=== PATIENT | male | born 1955 | race African-American/Black ===

== ENCOUNTER 2016-03-10 16:06 | Emergency (ER) | payer MEDICARE ==
[2015-11-11 09:59] VITALS: BMI 26.6
[~2016-03-10 16:06] MED LIST: ACCUPRIL20 MG PO; ASPIRIN325 MG PO; COREG12.5 MG PO; ELAVIL25 MG PO; GLUCOPHAGE1000 MG PO; GLUCOTROL 5 MG T5 MG PO; NEURONTIN600 MG PO; NITROQUICK0.4 MG SL; OMEPRAZOLE40 MG PO; PEPCID40 MG PO; PLAVIX75 MG PO; ULTRAM50 MG PO
== END 2016-03-10 21:45 | disposition home or self-care (01) ==
LOC: D.ER 16:06
DX: J02.9 Acute pharyngitis, unspecified (principal); E11.9 Type 2 diabetes mellitus without complications; I10 Essential (primary) hypertension

== ENCOUNTER → 2016-09-09 07:07 | Outpatient (CLI) | payer MEDICARE ==
[2015-11-11 09:59] VITALS: BMI 26.6
[2016-09-09 07:37] LABS: BASOPHILS 0.2 % (0-2); EOSINOPHILS 1.6 % (0-7); HEMOGLOBIN 15.4 g/dL (13.5-17.5); IMMATURE GRANULOCYTES 0.2 % (0-5); LYMPHOCYTES 35.5 % (15-50); MCH 29.4 pg (26.0-34.0); MCHC 34.2 g/dL (31.0-37.0); MCV 85.9 fL (80.0-100.0); MONOCYTES 6.5 % (2-11); PLATELET COUNT 194 10x3/uL (130-400); RBC 5.24 10x6/uL (4.20-6.10); RDW 14.6 % (11.5-14.5); WBC 5.5 10x3/uL (4.8-10.8)
[2016-09-09 07:50] LABS: HEMOGLOBIN A1C 6.8 % (4.8-6.0)
[2016-09-09 08:22] LABS: ALBUMIN 3.8 g/dL (3.4-5.0); ANION GAP 13.1 mmol/L (8-16); BILIRUBIN - TOTAL 0.4 mg/dL (0.2-1.3); CALCIUM 8.8 mg/dL (8.5-10.1); CARBON DIOXIDE 27.1 mmol/L (21.0-32.0); CHOL - HDL RATIO 3.3 ratio (2.3-4.9); CREATININE - SERUM 1.2 mg/dL (0.6-1.3); LDL-HDL RATIO 1.8 ratio (1.5-3.5); POTASSIUM - SERUM 4.2 mmol/L (3.5-5.1); PROTEIN - SERUM 6.6 g/dL (6.4-8.2); THYROID STIMULATING HORMONE 0.99 uIU/mL (0.36-3.74)
[2016-09-09 08:23] LABS: DIGOXIN 0.02 ng/mL (0.90-2.00); SCREENING PSA (YEARLY) 0.45 ng/mL (0.00-4.00)
== END ==
LOC: D.LAB 07:07 → D.LABREF 07:07
PROVIDERS: Family Medicine
DX: Z00.00 Encounter for general adult medical examination without abnormal findings (principal); Z12.5 Encounter for screening for malignant neoplasm of prostate; E11.9 Type 2 diabetes mellitus without complications; E78.4 Other hyperlipidemia; I25.10 Atherosclerotic heart disease of native coronary artery without angina pectoris

== ENCOUNTER 2017-02-03 07:22 | Outpatient (CLI) | payer MEDICARE ==
[~2017-02-03] VITALS: Ht 175.3 cm; Wt 86.4 kg
--- NOTE | ~2017-02-03 | HEMODYNAMI ---
PATIENT:MAR SAVAGE MEDICAL RECORD: [id number] : 57 LOCATION:D.CAT ADMISSION DATE: 02/03/17 Generatedon:02/03/201710:26 Patient name: MAR SAVAGE Patient #: [id number] SSN: : 1955 Date of study: 02/03/2017 Page: Of Hemodynamic Procedure Report Patient Data Patient Demographics Procedure consent was obtained First Name: MAR Gender: Male Last Name: JANETTE : 1955 [facility] Initial: [place] Age: 61 year(s) Patient #: [id number] Race: Black Additional ID: [id number] Contact details [address]: [address] [place] [address] State: [place] City: [place] Zip code: [address] Past Medical History Allergies Allergen Reaction Date Comments Reported Other allergy Skin ->rash 02/03/2017 Plavix Admission Admission Data Admission Date: 02/03/2017 Admission Time: 7:22 Procedure Procedure Types Cath Procedure Diagnostic Procedure LHC LHC w/Coronaries PCI Procedure Coronary Stent Coronary Stent Initial Miscellaneous Procedures Moderate Sedation up to 15 minutes Procedure Description Procedure Date Procedure Date: 02/03/2017 Procedure Start Time: 10:12 Procedure End Time: 10:24 Procedure Staff Name Function Angelito Candelario MD Performing Physician Cookie Rogers RT Monitor Keon Jin RN Nurse Evelin Aguilar RT Scrub Procedure Data Cath Procedure Fluoroscopy Diagnostic fluoroscopy Total fluoroscopy Time: 2.6 time: 2.6 min min Diagnostic fluoroscopy Total fluoroscopy dose: 471 dose: 471 mGy mGy Contrast Material Contrast Material Type Amount (ml) Isovue 300 69 Entry Location Entry Primary Successful Side Size Upsize Upsize Entry Closure Faust ccessful Closure Location (Fr) 1 (Fr) 2 (Fr) Remarks Device Remarks Radial Right 6 Fr Mechanical artery Short Compression Estimated blood loss: 10 ml Diagnostic catheters Device Type Used For End Catheter Placement DIAGNOSTIC [place] 110cm 5 LV Angiography Fr catheter ([id number]) DIAGNOSTIC [place] 110cm 5 Left Coronary Fr catheter ([id number]) Angiography DIAGNOSTIC [place] 110cm 5 Right Coronary Fr catheter ([id number]) Angiography Procedure Complications No complications Procedure Medications Medication Administration Route Dosage 0.9% NaCl I.V. 100 ml/hr Oxygen NC 2 l/min Heparin Flush Bag added to field 2 bags (1000units/500ml NS) Lidocaine 2% added to field 20 Radial Cocktail added to field 1 syringe (Verapomil 2mg/Nitro 400mcg/Heparin 1500units) Benadryl I.V. 50 mg Versed I.V. 1 mg Fentanyl I.V. 50 mcg Radial Cocktail I.A. 1 syringe (Verapomil 2mg/Nitro 400mcg/Heparin 1500units) Heparin Bolus I.V. 4000 units Integrilin (Bolus I.V. 7.9 ml 2mg/ml) Integrilin (Bolus wasted 2.1 ml 2mg/ml) Effient P.O. 60 mg Hemodynamics Rest Heart Rate: 70 (bpm) Snapshots Pre Cath Intra NCS Post Cath Vital Signs Time Heart Resp SPO2 etCO2 NIBP (mmHg) Rhythm Pain Sedation Rate (ipm) (%) (mmHg) Status Level (bpm) 9:59:38 66 13 93 35 159/82(122) NSR 0 (11) 10(A) , No pain 10:04:21 63 14 96 37 144/91(117) NSR 0 (11) 10(A) , No pain 10:09:04 62 13 96 36.7 131/81(108) NSR 0 (11) 10(A) , No pain 10:13:42 65 15 99 36.7 137/79(117) NSR 0 (11) 10(A) , No pain 10:18:23 71 14 94 35.2 122/73(100) NSR 0 (11) 10(A) , No pain 10:22:59 68 15 96 35.9 129/72(107) NSR 0 (11) 10(A) , No pain Medications Time Medication Route Dose Verified Delivered Reason Note s Effectiveness by by 10:01:02 0.9% NaCl I.V. 100 Keon Keon Per physician ml/hr Davin Jin RN RN 10:01:18 Oxygen NC 2 l/min Keon Keon Per physician Davin Jin RN RN 10:01:32 Heparin Flush added 2 bags Keon Keon used for Bag to Davin Jin procedure (1000units/500ml field RN RN NS) 10:01:51 Lidocaine 2% added 20ml Keon Keon for local to vial Lorasuncion Jin anesthetic RN RN 10:02:05 Radial Cocktail added 1 Keon Keon used for (Verapomil to syringe Lorasuncion Jin procedure 2mg/Nitro field RN RN 400mcg/Heparin 1500units) 10:02:17 Benadryl I.V. 50 mg Keon Keon Per physician Davin Jin RN RN 10:07:53 Versed I.V. 1 mg Keon Keon for sedation Davin Jin RN RN 10:08:06 Fentanyl I.V. 50 mcg Keon Keon for sedation Davin Jin RN RN 10:13:49 Radial Cocktail I.A. 1 Keon Angelito for (Verapomil syringe Davin Candelario MD vasodilation 2mg/Nitro RN 400mcg/Heparin 1500units) 10:19:23 Heparin Bolus I.V. 4000 Keon Keon for units Davin Jin anticoagulation RN RN 10:19:42 Integrilin I.V. 7.9 ml Keon Keon for (Bolus 2mg/ml) Davin Jin antiplatelet RN RN therapy 10:19:58 Integrilin wasted 2.1ml Keon Keon to sharp's (Bolus 2mg/ml) Davin Jin RN RN 10:24:47 Effient P.O. 60 mg Keon Keon for Davin Jin antiplatelet RN RN therapy Procedure Log Time Note 9:37:45 Cookie Counts RT(R) sent for patient. Start room use. 9:37:46 Time tracking: Regular hours 9:37:50 Plan of Care:Hemodynamics will remain stable., Cardiac rhythm will remain stable., Comfort level will be maintained., Respiratory function will remain adequate., Patient/ family verbilizes understanding of procedure., Procedure tolerated without complication., Recovers from procedure without complications.. 9:47:02 Patient received from Pre/Post Procedure Room to CCL 1 Alert and oriented. Tansferred to table in Supine position. 9:47:04 Warm blankets applied, and oleg hugger turned on for patient comfort. 9:47:04 Correct patient and procedure confirmed by team. 9:47:06 Signed procedure consent form obtained from patient. 9:47:08 ECG and BP/O2 sat monitors applied to patient. 9:58:10 Vital chart was started 9:58:13 Rhythm: sinus rhythm 9:58:55 Full Disclosure recording started 9:59:37 H&P Date Dictated: 01/14/2017 Within 30 days and on chart., H&P Addendum completed by physician on day of procedure. (MUST COMPLETE FOR ALL OUTPATIENTS). 9:59:41 Baseline sample Acquired. 9:59:43 Pre-procedure instructions explained to patient. 9:59:43 Pre-op teaching completed and patient verbalized understanding. 9:59:46 Family in patients room. 9:59:47 Patient NPO since Midnight. 10:00:19 Patient allergic to Other allergyPlavix 10:00:22 Is the patient allergic to Iodine/contrast media? No. 10:00:25 Is patient on blood thinner?No 10:00:27 Patient diabetic? Yes. 10:00:39 If diabetic: On Metformin? Yes 10:00:42 If on Metformin: Last Dose? 02/01/2017 10:00:45 Previous problem with sedation/anesthesia? No ? 10:00:46 Snore? Yes 10:00:47 Sleep apnea? No 10:00:48 Deviated septum? No 10:00:50 Opens mouth fully? Yes 10:00:50 Sticks out tongue? Yes 10:00:52 Airway obstruction? No ? 10:00:55 Dentures? No ? 10:01:02 0.9% NaCl 100 ml/hr I.V. was administered by Keon Jin RN; Per physician; 10:01:07 Pre procedure: right dorsailis pedis pulse 2+ Normal; easily identifiable; not easily obliterated 10:01:08 Modified Christophe's test Ulnar < 7 seconds 10:01:10 Patient pain scale 0/10 ?. 10:01:16 IV patent on arrival in left hand with 0.9% NaCl at [facility]. 10:01:18 Oxygen 2 l/min NC was administered by Keon Jin RN; Per physician; 10:01:32 Heparin Flush Bag (1000units/500ml NS) 2 bags added to field was administered by Keon Jin RN; used for procedure; 10:01:40 Lab results completed and on chart. 10:01:43 Right Radial & Right Groin area was prepped with chlora-prep and draped in sterile fashion 10:01:44 Alarms reviewed by R. N. 10:01:45 Sharps counted by scrub and verified by R.N. 10:01:48 Use device set Radial Dx 10:01:49 ACIST Syringe (60638) opened to sterile field. 10:01:49 Medline Cath Pack ([id number]) opened to sterile field. 10:01:50 Bag Decanter (2002S) opened to sterile field. 10:01:50 SHEATH 6FR Slender ([id number]) opened to sterile field. 10:01:51 Lidocaine 2% 20ml vial added to field was administered by Keon Jin RN; for local anesthetic; 10:01:51 DIAGNOSTIC WIRE .035 260cm J wire (357650) opened to sterile field. 10:01:51 ACIST Hand Control (23118) opened to sterile field. 10:01:52 ACIST Manifold (23040) opened to sterile field. 10:01:52 Tegaderm 4 x 4 (1626W) opened to sterile field. 10:01:53 MBrace Wrist Support ([id number]) opened to sterile field. 10:02:05 Radial Cocktail (Verapomil 2mg/Nitro 400mcg/Heparin 1500units) 1 syringe added to field was administered by Keon Jin RN; used for procedure; 10:02:17 Benadryl 50 mg I.V. was administered by Keon Jin RN; Per physician; 10:03:10 Physician paged 10:04:09 Zero performed for pressure channel P1 10:07:04 Final Timeout: patient, procedure, and site verified with staff and physician. All members of the team are in agreement. 10:07:08 Right Radial site verified by team. 10:07:10 Physical assessment completed. ASA score P 2 - A patient with mild systemic disease as per Angelito Candelario MD. 10:07:14 Sedation plan: IV Moderate Sedation Medication:Versed, Fentanyl 10:07:53 Versed 1 mg I.V. was administered by Keon Jin RN; for sedation; 10:08:06 Fentanyl 50 mcg I.V. was administered by Keon Jin RN; for sedation; 10:12:33 Procedure started. 10:12:43 Local anesthetic to right radial artery with Lidocaine 2% by Angelito Candelario MD.INITIAL ACCESS ONLY 10:13:03 A 6 Fr Short sheath was inserted into the Right Radial artery 10:13:41 A DIAGNOSTIC [place] 110cm 5 Fr catheter ([id number]) was advanced over the wire and used for LV Angiography. 10:13:49 Radial Cocktail (Verapomil 2mg/Nitro 400mcg/Heparin 1500units) 1 syringe I.A. was administered by Angelito Candelario MD; for vasodilation; 10:14:17 LV gram done using CARRANZA 10:14:21 Injector settings: Ml/sec: 5, Volume: 15, 10:14:31 EF : 50 % 10:14:44 A DIAGNOSTIC [place] 110cm 5 Fr catheter ([id number]) was advanced over the wire and used for Left Coronary Angiography. 10:14:53 Use device set [facility] PCI 10:15:30 INFLATOR Merit BasixCompak ([id number]) opened to sterile field. 10:15:37 A DIAGNOSTIC [place] 110cm 5 Fr catheter (546645) was advanced over the wire and used for Right Coronary Angiography. 10:16:09 Catheter removed. 10:16:25 GUIDE 6FR AR 2.0 catheter ([id number]) opened to sterile field. 10:16:37 CHOICE PT Extra Support 182cm wire ([id number]) opened to sterile field. 10:17:28 6 Fr AR 2.0 guide catheter was inserted over the wire 10:18:08 CHOICE PT ES wire advanced. 10:19:23 Heparin Bolus 4000 units I.V. was administered by Keon Jin RN; for anticoagulation; 10:19:42 Integrilin (Bolus 2mg/ml) 7.9 ml I.V. was administered by Keon Jin RN; for antiplatelet therapy; 10:19:58 Integrilin (Bolus 2mg/ml) 2.1ml wasted was administered by Keon Jin RN; to sharp's; 10:20:10 Inflation Number: 1 A RADHA RX 3.5 x 34 stent ([id number]) was prepped and advanced across the Mid RCA. The stent was deployed at 15 ROSE for 0:10 (min:sec). 10:20:40 Stent catheter was removed intact over wire. 10:20:41 Wire removed. 10:20:42 Guide catheter removed. 10:20:52 Sheath removed intact; hemostasis achieved with Mechanical Compression to the Right Radial artery. 10:20:54 Procedure ended.(Physican Out) 10:21:07 Fluoroscopy time 02.60 minutes. 10:21:12 Fluoroscopy dose: 471 mGy 10:21:12 Flurop Dose total: 471 10:21:15 Contrast amount:Isovue 300 69ml. 10:21:16 Sharps counted by scrub and verified by R.N. 10:21:18 Insertion/operative site no bleeding no hematoma. 10:21:28 Post right radial artery:stable, clean and dry 10:21:30 Post Procedure Pulses reassessed and unchanged 10:21:33 Post-procedure physical assessment completed. ASA score P 2 - A patient with mild systemic disease as per Angelito Candelario MD. 10:21:37 Post procedure rhythm: unchanged. 10:21:40 Estimated blood loss: 10 ml 10:21:42 Post procedure instruction explained to patient.Patient verbalizes understanding. 10:21:44 Patient needs reinforcement of post procedure teaching. 10:21:52 Procedure type changed to Cath procedure, Diagnostic procedure, LHC, LHC w/Coronaries, PCI procedure, Coronary Stent, Coronary Stent Initial, Miscellaneous Procedures, Moderate Sedation up to 15 minutes 10:22:00 Procedure Complication : No complications 10:22:02 See physician's report for complete and final results. 10:22:45 TR BAND Standard ([id number]) opened to sterile field. 10:23:36 Procedure and supply charges have been captured, reviewed, submitted and are correct. 10:23:45 Vital chart was stopped 10:23:47 Report given to Pre/Post Procedure Room. 10:23:50 Patient transfered to Pre/Post Procedure Room with Stretcher. 10:23:57 TR band inflated with 0cc of air. 10:23:59 TR band inflated with 13cc of air. 10:24:12 Procedure ended. 10:24:12 Full Disclosure recording stopped 10:24:16 End room use (Document Last) 10:24:47 Effient 60 mg P.O. was administered by Keon Jin RN; for antiplatelet therapy; Intervention Summary Intervention Notes Time ActionType Lesion and Equipment Used Action# Pressure Duration Attributes 10:20:10 Place stent Mid RCA RADHA RX 3.5 x 1 15 00:10 34 stent ([id number]) Device Usage Item Name Manufacture Quantity Catalog Number Hospital Part Current M inimal Lot# / Charge Number Stock Stock Serial# Code ACIST Syringe Acist 1 11423 721226 408763 065250 2 0 (28926) Medical Systems Inc Medline Cath Cardinal 1 [id number] 994952 39332 925013 5 Pack Health ([id number]) Bag Decanter Microtek 1 2001S 433236 51074 195142 5 () Medical Inc. SHEATH 6FR Terumo 1 [id number] 347649 313892 352427 4 0 Slender ([id number]) DIAGNOSTIC St Tooñ 1 757279 412023 871148 595171 3 0 WIRE .035 260cm J wire (139400) ACIST Hand Acist 1 65797 005290 709338 421989 5 Control Medical (31763) Systems Inc ACIST Manifold Acist 1 41555 131073 709435 109048 5 (64131) Medical Systems Inc Tegaderm 4 x 4 3M 1 1626W 068253 644331 332972 5 (1626W) MBrace Wrist Advanced 1 140-0250-00 692497 33274 101381 5 Support Vascular ([id number]) Dynamics DIAGNOSTIC Terumo 1 40-4203 854545 908242 898280 5 [place] 110cm 5 Fr catheter (082192) INFLATOR Merit Merit 1 OK6388 160076 941386 499600 1 5 autoGraph (LZ4796) GUIDE 6FR AR Medtronic 1 [id number] 231104 21105 126560 1 2.0 catheter (AO0DZ41) CHOICE PT [place] 1 [id number] 609781 500642 923085 5 Extra Support Scientific 182cm wire ([id number]) RADHA RX 3.5 x Medtronic 1 [id number] 851738 8446284 486137 5 [id number] 34 stent ([id number]) TR BAND Terumo 1 [id number] 444168 170804 668162 4 0 Standard ([id number]) Signature Audit [place] Stage Time Signature Unsigned Intra-Procedure 02/03/2017 Cookie 10:26:54 AM Counts RT(R) Signatures Monitor : Cookie Signature : Counts RT Date : Time : [facility] [address] [place] [address]
[2017-02-03] MEDS ORDERED: LIPITOR20 MG PO (07:38)
[2017-02-03 07:58] VITALS: BP 154/80; Ht 175.3 cm; Wt 86.4 kg
[2017-02-03 08:01] LABS: BASOPHILS 0.2 % (0-2); EOSINOPHILS 1.7 % (0-7); HEMATOCRIT 44.6 % (42.0-54.0); HEMOGLOBIN 15.5 g/dL (13.5-17.5); IMMATURE GRANULOCYTES 0.2 % (0-5); LYMPHOCYTES 30.1 % (15-50); MCH 28.8 pg (26.0-34.0); MCHC 34.8 g/dL (31.0-37.0); MCV 82.7 fL (80.0-100.0); MEAN PLATELET VOLUME 10.1 fL (7.4-10.4); MONOCYTES 7.5 % (2-11); NEUTROPHILS 60.3 % (40-80); PLATELET COUNT 191 10x3/uL (130-400); RBC 5.39 10x6/uL (4.20-6.10); RDW 14.5 % (11.5-14.5); WBC 4.8 10x3/uL (4.8-10.8)
[2017-02-03 08:10] LABS: CALC OSMOLALITY 286 mosm/kg (275-300); CALCIUM 8.9 mg/dL (8.5-10.1); CARBON DIOXIDE 26.6 mmol/L (21.0-32.0); CHLORIDE - SERUM 107 mmol/L (98-107); GLUCOSE 184 mg/dL (74-106); POTASSIUM - SERUM 3.8 mmol/L (3.5-5.1); SODIUM 141 mmol/L (136-145); UREA NITROGEN 14 mg/dL (7-18); eGFR NON AFRICAN AMERICAN 81 mL/min (90-120)
[2017-02-03] MEDS ORDERED: EFFIENT10 MG PO (10:40)
--- NOTE | 2017-02-03 10:50 | NUR ---
ROOM AIR, NO RESP DISTRESS. RIGHT WRIST TR BAND CDI, NO BLEEDING OR HEMATOMA NOTED. NO C/O PAIN OR NAUSEA. VSS. FAMILY AT BEDSIDE, CALL LIGHT WITHIN REACH.
--- NOTE | 2017-02-03 11:20 | NUR ---
RIGHT WRIST TR BAND CDI, NO BLEEDING OR HEMATOMA NOTED. ROOM AIR, NO RESP DISTRESS. VSS. NO C/O PAIN OR NAUSEA. VSS. WILL CONTINUE TO MONITOR CLOSELY.
--- NOTE | 2017-02-03 11:35 | NUR ---
SITTING UP IN BED SIPPING ON DRINK AND EATING SANDWICH WITH NO C/O NAUSEA. RIGHT WRIST TR BAND CDI, NO BLEEDING OR HEMATOMA NOTED. NO C/O PAIN. ROOM AIR, NO RESP DISTRESS. VSS. CALL [facility] WITHIN REACH.
--- NOTE | 2017-02-03 12:35 | NUR ---
RESTING QUIETLY WITH EYES CLOSED. NO C/O AT THIS TIME. RIGHT WRIST TR BAND CDI, NO BLEEDING OR HEMATOMA NOTED. VSS. WILL CONTINUE TO MONITOR.
--- NOTE | 2017-02-03 13:35 | NUR ---
SITTING UP EATING SANDWICH. NO C/O AT THIS TIME. 3CC OF AIR REMOVED FROM TR BAND, NO BLEEDING NOTED. VSS. CALL LIGHT WITHIN REACH.
--- NOTE | 2017-02-03 13:45 | NUR ---
2CC OF AIR REMOVED FROM TR BAND, NO BLEEDING NOTED.
--- NOTE | 2017-02-03 13:55 | NUR ---
C/O SOB AND PAIN ON LEFT SIDE. LUNG AND HEART SOUNDS AUSCULTATED. DR. RAMOS NOTIFIED. GI COCKTAIL ORDERED.
--- NOTE | 2017-02-03 14:00 | NUR ---
3CC OF AIR REMOVED FROM TR BAND, NO BLEEDING NOTED.
--- NOTE | 2017-02-03 14:17 | NUR ---
LEFT PIV D/C'D WITH CATHETER INTACT, BAND AID TO SITE. UP TO BEDSIDE TO GET DRESSED.
--- NOTE | 2017-02-03 14:25 | NUR ---
REMAINING AIR REMOVED FROM TR BAND, DRESSING PLACED TO SITE. DISCHARGE INSTRUCTIONS GIVEN, VERBALIZED UNDERSTANDING.
--- NOTE | 2017-02-03 14:35 | NUR ---
TAKEN OUT VIA WHEELCHAIR BY [employer] MANAGER. LEFT FACILITY WITH FAMILY AND ALL PERSONAL BELONGINGS.
--- NOTE | 2017-02-10 15:46 | OP ---
PATIENT NAME: MAR SAVAGE MEDICAL RECORD: [id number] :57 LOCATION:D.CAT ADMISSION DATE: SURGEON: SUDHA RAMOS MD DATE OF OPERATION: 02/03/2017 PROCEDURES: 1. PTCA stent to RCA. 2. Left heart catheterization. 3. Selective coronary angiography. 4. Left ventriculogram. INDICATION: Angina and coronary artery disease. PROCEDURE IN DETAIL: After informed consent was obtained and after a detailed explanation of risks, benefits as well as alternative therapies, the patient elected to proceed with angiogram and angioplasty. The right radial area was prepped and draped in normal sterile fashion. Right radial artery was cannulated via modified Seldinger technique with placement of 6-[place] sheath. All catheters exchanged through this sheath. FINDINGS: The left ventriculogram was performed in standard 30-degree CARRANZA view, reveals preserved cardiac wall motion throughout all segments. Overall ejection fraction 50%. SELECTIVE CORONARY ANGIOGRAPHY: 1. Left main showed no significant angiographic disease. 2. Left anterior descending has previously placed stent. This is widely patent. However, proximal to this, there is 70-75% stenosis. 3. The left circumflex has a new 70-75% stenosis in the mid vessel. 4. The right coronary has previously placed stent. There is 70+ percent in-stent restenosis in the proximal portion of the stent. PTCA STENT OF THE RIGHT CORONARY ARTERY: The stent used was a 3.5 x 30 mm Sinclair. Result was 0% residual stenosis. OVERALL IMPRESSION: Successful percutaneous transluminal coronary angioplasty stent of the right coronary artery going from greater than 70% initial stenosis to 0% residual stenosis. PLAN: PTCA stent of the LAD and circumflex in the near future. TRANSINT:[id number] Voice Confirmation ID: [id number] DOCUMENT ID: [id number] SUDHA RAMOS MD at 1546 CC: [id number] DICTATION DATE: 02/03/17 1025 ROTARY ENGRAVER: 02/03/17 1139 DEP CLI 02/03/17 [place] [id number]
== END 2017-02-03 14:35 | disposition home or self-care (01) ==
LOC: D.CATH 07:22
PROVIDERS: Internal Medicine Interventional Cardiology
DX: I25.119 Atherosclerotic heart disease of native coronary artery with unspecified angina pectoris (principal); I10 Essential (primary) hypertension; E78.5 Hyperlipidemia, unspecified; F17.200 Nicotine dependence, unspecified, uncomplicated; Z01.812 Encounter for preprocedural laboratory examination
CPT/HCPCS: 93458; C9600

== ENCOUNTER 2017-02-12 08:04 | Outpatient (CLI) | payer MEDICARE ==
[~2017-02-12] VITALS: Ht 177.8 cm; Wt 85.9 kg
--- NOTE | ~2017-02-12 | HP ---
PATIENT: MAR EDWARD MEDICAL RECORD: [id number] ACCOUNT: [id number] LOCATION:SADNRA : 57 ADMISSION DATE: 02/12/17 HISTORY AND PHYSICAL EXAMINATION ADMITTING DIAGNOSES: 1. Angina. 2. Coronary artery disease. 3. Recent percutaneous transluminal coronary angioplasty and stent of the right coronary artery with concomitant disease in LAD and circumflex. 4. Diabetes, non-insulin dependent. 5. Hypertension. 6. Hyperlipidemia. HISTORY OF PRESENT ILLNESS: Mr. Edward presents with anginal symptomatology and found to have 3-vessel coronary artery disease, underwent successful PTCA stent of the RCA, now brought back for PTCA stent of the left circumflex and LAD. REVIEW OF SYSTEMS: The patient reports easy bruising but reports no swollen glands. The patient reports no fever, no night sweats, no significant weight gain, no significant weight loss. No significant exercise tolerance. The patient reports no dry eyes, no irritation, no vision change. Patient reports no difficulty hearing and no ear pain. Patient reports no frequent nose bleeds or nose and sinus problems. Patient reports on arm pain on exertion. No shortness of breath while lying down. No history of heart murmur. Patient reports no cough, no wheezing or coughing up blood. Patient reports no abdominal pain, no vomiting. Normal appetite. No diarrhea and not vomiting blood. No nausea and no constipation. Patient reports no incontinence. No difficulty urinating. No hematuria. No increased frequency. Patient reports no muscle aches. No weakness, no arthralgias, no back pain. No swelling of the extremities. Patient reports no abnormal mole, no jaundice, no rashes. Reports no loss of consciousness. No weakness and no numbness. No seizures, dizziness, or headaches. The patient reports no depression, no sleep disturbance, feeling safe in a relationship and no alcohol abuse. Patient reports on fatigue. Reports no runny nose or sinus pressure. No itching, no hives, and no frequent sneezing. PHYSICAL EXAMINATION: GENERAL APPEARANCE: Well-nourished, well-developed, appears stated age. Level of distress, comfortable. PSYCHIATRIC: Mental status, alert, normal affect. Orientation, oriented to time, place and person. EYES: Lids and conjunctiva, noninjected. No discharge, no pallor. ENT: Lips, teeth, gums, normal dentition. Oropharynx, no cyanosis, no pallor. NECK: Carotid arteries, bilateral normal upstroke, no bruits, no thrills. JUGULAR VEINS: No jugular venous pressure or distention. CERVICAL LYMPH NODES: Nontender, nonenlarged. THYROID: Not enlarged. Nontender. No nodules. LUNGS: Respiratory effort, unlabored. CHEST: Normal curvature. No thoracic deformity. No chest wall tenderness. Percussion, resonant. Auscultation, clear. No wheezes, no rales, no rhonchi. CARDIOVASCULAR: Precordial exam, nondisplaced. No heaves or pericardial thrills. Rate and rhythm, regular. Heart sounds, normal S1, normal S2. No S3, no gallop, no rub. Systolic murmur, not heard. Diastolic murmur, not heard. EXTREMITIES: No cyanosis, no edema. Peripheral pulses, full and equal in all HISTORY AND PHYSICAL [id number] MAR EDWARD extremities, except as noted. No bruits appreciated. ABDOMEN: Soft, nondistended. Normal aorta. No bruit. Nontender. No masses. Liver, nontender, no hepatomegaly. Spleen, nontender, no splenomegaly. MUSCULOSKELETAL: No joint tenderness. No joint swelling. No erythema. NEUROLOGICAL: Normal gait, normal strength, normal tone. SKIN: Warm and dry. OVERALL IMPRESSION: Anginal symptomatology. We will proceed with transcatheter revascularization of the LAD and circumflex. TRANSINT:[id number] Voice Confirmation ID: [id number] DOCUMENT ID: [id number] SUDHA RAMOS MD at 1323 CC: [id number] DICTATION DATE: 02/12/1757 FURNITURE INSPECTOR: 02/12/17 1051 DEP CLI 02/12/17 [facility] [address] [place] [address]
--- NOTE | ~2017-02-12 | HEMODYNAMI ---
PATIENT:MAR SAVAGE MEDICAL RECORD: [id number] : 57 LOCATION:D.CAT ADMISSION DATE: 02/12/17 Generatedon:02/12/20179:56 Patient name: MAR SAVAGE Patient #: [id number] SSN: : 1955 Date of study: 02/12/2017 Page: Of Hemodynamic Procedure Report Patient Data Patient Demographics Procedure consent was obtained First Name: MAR Gender: Male Last Name: JANETTE : 1955 [facility] Initial: [place] Age: 61 year(s) Patient #: [id number] Race: Black Additional ID: [id number] Contact details [address]: [address] [place] [address] State: [place] City: [place] Zip code: [address] Past Medical History Allergies Allergen Reaction Date Comments Reported Other allergy Skin ->rash 02/03/2017 Plavix Other allergy 02/12/2017 PLAVIX Admission Admission Data Admission Date: 02/12/2017 Admission Time: 8:04 Lab Results Lab Result Date: 02/12/2017 Lab Result Time: 0:00 Biochemistry Name Units Result Min Max BUN mg/dl 15 --(--*-)-- 7 18 Creatinine mg/dl 1.1 --(--*-)-- 0.6 1.3 CBC Name Units Result Min Max Hemoglobin g/dl 15.3 --(-*--)-- 13.5 17.5 Procedure Procedure Types Cath Procedure PCI Procedure Coronary Stent Coronary Stent Initial x2 Miscellaneous Procedures Moderate Sedation up to 15 minutes Procedure Description Procedure Date Procedure Date: 02/12/2017 Procedure Start Time: 9:41 Procedure End Time: 9:56 Procedure Staff Name Function Rashel Rothman RN Client Manager Large Law Evelin Aguilar RT Scrub Keon Jin RN Nurse Angelito Candelario MD Performing Physician Cookie Rogers RT Monitor Procedure Data Cath Procedure Fluoroscopy Diagnostic fluoroscopy Total fluoroscopy Time: 3.1 time: 3.1 min min Diagnostic fluoroscopy Total fluoroscopy dose: 358 dose: 358 mGy mGy Contrast Material Contrast Material Type Amount (ml) Isovue 300 40 Entry Location Entry Primary Successful Side Size Upsize Upsize Entry Closure Succes sful Closure Location (Fr) 1 (Fr) 2 (Fr) Remarks Device Remarks Radial Right 6 Fr artery Short Estimated blood loss: 10 ml Procedure Complications No complications Procedure Medications Medication Administration Route Dosage 0.9% NaCl I.V. 100 ml/hr Oxygen NC 2 l/min Heparin Flush Bag added to field 2 bags (1000units/500ml NS) Lidocaine 2% 20 Radial Cocktail added to field 1 syringe (Verapomil 2mg/Nitro 400mcg/Heparin 1500units) Versed I.V. 1 mg Fentanyl I.V. 50 mcg Versed I.V. 1 mg Fentanyl I.V. 50 mcg Heparin Bolus I.V. 4000 units Radial Cocktail I.A. 1 syringe (Verapomil 2mg/Nitro 400mcg/Heparin 1500units) Hemodynamics Rest HGB: 15.3 (g/dl) Heart Rate: 61 (bpm) Snapshots Pre Cath Intra NCS Post Cath Vital Signs Time Heart Resp SPO2 etCO2 NIBP (mmHg) Rhythm Pain Sedation Rate (ipm) (%) (mmHg) Status Level (bpm) 9:17:22 55 17 99 17.4 136/80(108) NSR 0 (11) 10(A) , No pain 9:22:11 59 13 95 21.2 132/81(98) NSR 0 (11) 10(A) , No pain 9:26:57 60 14 93 23.5 124/81(96) NSR 0 (11) 10(A) , No pain 9:31:44 67 13 92 24.3 125/75(95) NSR 0 (11) 10(A) , No pain 9:36:31 54 16 92 23.5 111/75(97) NSR 0 (11) 10(A) , No pain 9:41:46 56 16 93 22.7 137/89(112) NSR 0 (11) 9(A) , No pain 9:46:33 73 14 93 22.7 115/76(103) NSR 0 (11) 9(A) , No pain 9:51:18 64 11 94 28.8 122/74(107) NSR 0 (11) 9(A) , No pain 9:56:05 61 11 94 26.5 118/71(93) NSR 0 (11) 9(A) , No pain Medications Time Medication Route Dose Verified Delivered Reason Notes Effectiveness by by 9:17:06 0.9% NaCl I.V. 100 Keon Keon Per physician ml/hr Davin Jin RN RN 9:17:19 Oxygen NC 2 l/min Keon Keon Per physician Davin Jin RN RN 9:17:32 Heparin Flush added 2 bags Keon Keon used for Bag to Davin Jin procedure (1000units/500ml field RN RN NS) 9:17:45 Lidocaine 2% 20ml Keon Keon for local vial Lorasuncion Jin anesthetic RN RN 9:18:06 Radial Cocktail added 1 Keon Keon used for (Verapomil to syringe Davin Jin procedure 2mg/Nitro RN RN 400mcg/Heparin 1500units) 9:40:42 Versed I.V. 1 mg Keon Keon for sedation Davin Jin RN RN 9:41:04 Fentanyl I.V. 50 mcg Keon Keon for sedation Davin Jin RN RN 9:43:05 Versed I.V. 1 mg Keon Keon for sedation Davin Jin RN RN 9:43:12 Radial Cocktail I.A. 1 Keon Angelito for (Verapomil syringe Davin Candelario MD vasodilation 2mg/Nitro RN 400mcg/Heparin 1500units) 9:43:13 Fentanyl I.V. 50 mcg Keon Keon for sedation Davin Jin RN RN 9:45:22 Heparin Bolus I.V. 4000 Keon Keon for units Davin Jin anticoagulation RN windows application packager Log Time Note 8:59:02 Rashel Rothman RN sent for patient. Start room use. 8:59:20 Time tracking: Regular hours 8:59:23 Plan of Care:Hemodynamics will remain stable., Cardiac rhythm will remain stable., Comfort level will be maintained., Respiratory function will remain adequate., Patient/ family verbilizes understanding of procedure., Procedure tolerated without complication., Recovers from procedure without complications.. 9:02:08 Lab Result : Creatinine 1.1 mg/dl 9:02:08 Lab Result : BUN 15 mg/dl 9:02:08 Lab Result : Hemoglobin 15.3 g/dl 9:05:18 Patient received from Pre/Post Procedure Room to CCL 1 Alert and oriented. Tansferred to table in Supine position. 9:05:21 Warm blankets applied, and oleg hugger turned on for patient comfort. 9:05:23 Correct patient and procedure confirmed by team. 9:05:26 Signed procedure consent form obtained from patient. 9:05:28 ECG and BP/O2 sat monitors applied to patient. 9:16:17 Vital chart was started 9:16:20 Rhythm: sinus rhythm 9:16:22 Full Disclosure recording started 9:16:26 H&P Date Dictated: 02/12/2017 New H&P dictated by physician.. 9:16:28 Pre-procedure instructions explained to patient. 9:16:28 Pre-op teaching completed and patient verbalized understanding. 9:16:29 Family in waiting room. 9:16:31 Patient NPO since Midnight. 9:16:58 Patient allergic to Other allergyPLAVIX 9:17:00 Is the patient allergic to Iodine/contrast media? No. 9:17:01 Is patient on blood thinner?Yes 9:17:04 ACC The patient was administered the following blood thiners within the last 24 hours: ACCEffient 9:17:06 0.9% NaCl 100 ml/hr I.V. was administered by Keon Jin RN; Per physician; 9:17:06 Patient diabetic? No. 9:17:09 Previous problem with sedation/anesthesia? No ? 9:17:10 Snore? Yes 9:17:11 Sleep apnea? No 9:17:12 Deviated septum? No 9:17:12 Opens mouth fully? Yes 9:17:13 Sticks out tongue? Yes 9:17:15 Airway obstruction? No ? 9:17:16 Dentures? No ? 9:17:18 Pre procedure: right dorsailis pedis pulse 2+ Normal; easily identifiable; not easily obliterated 9:17:19 Oxygen 2 l/min NC was administered by Keon Jin RN; Per physician; 9:17:20 Modified Christophe's test Ulnar < 7 seconds 9:17:22 Patient pain scale 0/10 ?. 9:17:28 IV patent on arrival in left forearm with 0.9% NaCl at [facility]. 9:17:30 Lab results completed and on chart. 9:17:32 Heparin Flush Bag (1000units/500ml NS) 2 bags added to field was administered by Keon Jin RN; used for procedure; 9:17:33 Right Radial & Right Groin area was prepped with chlora-prep and draped in sterile fashion 9:17:34 Alarms reviewed by R. N. 9:17:34 Sharps counted by scrub and verified by R.N. 9:17:38 Use device set CATH PACK 9:17:45 Lidocaine 2% 20ml vial was administered by Keon Jin RN; for local anesthetic; 9:17:45 Use device set TAUTH PCI 9:17:50 ACIST Syringe (71079) opened to sterile field. 9:17:50 ACIST Hand Control (04564) opened to sterile field. 9:17:51 ACIST Manifold (11322) opened to sterile field. 9:17:52 Medline Cath Pack ([id number]) opened to sterile field. 9:17:52 Bag Decanter (2002S) opened to sterile field. 9:17:53 DIAGNOSTIC WIRE .035 260cm J wire (321124) opened to sterile field. 9:17:53 INFLATOR Merit BasixCompak (PV7720) opened to sterile field. 9:18:06 Radial Cocktail (Verapomil 2mg/Nitro 400mcg/Heparin 1500units) 1 syringe added to field was administered by Keon Jin RN; used for procedure; 9:18:31 SHEATH 6FR Slender ([id number]) opened to sterile field. 9:20:46 Physician paged 9:20:55 Baseline sample Acquired. 9:39:43 Final Timeout: patient, procedure, and site verified with staff and physician. All members of the team are in agreement. 9:39:45 Right Radial site verified by team. 9:39:59 Physical assessment completed. ASA score P 2 - A patient with mild systemic disease as per Angelito Candelario MD. 9:40:02 Sedation plan: IV Moderate Sedation Medication:Versed, Fentanyl 9:40:42 Versed 1 mg I.V. was administered by Keon Jin RN; for sedation; 9:41:04 Fentanyl 50 mcg I.V. was administered by Keon Jin RN; for sedation; 9:41:38 Procedure started. 9:41:46 Local anesthetic to right radial artery with Lidocaine 2% by Angelito Candelario MD.INITIAL ACCESS ONLY 9:42:10 A 6 Fr Short sheath was inserted into the Right Radial artery 9:43:05 Versed 1 mg I.V. was administered by Keon Jin RN; for sedation; 9:43:12 Radial Cocktail (Verapomil 2mg/Nitro 400mcg/Heparin 1500units) 1 syringe I.A. was administered by Angelito Candelario MD; for vasodilation; 9:43:13 Fentanyl 50 mcg I.V. was administered by Keon Jin RN; for sedation; 9:43:14 6 Fr XBLAD 3.5 guide catheter was inserted over the wire 9:44:32 GUIDE 6FR XBLAD 3.5 catheter ([id number]) opened to sterile field. 9:44:34 WHISPER 190cm wire ([id number]) opened to sterile field. 9:44:41 Whisper wire advanced. 9:45:22 Heparin Bolus 4000 units I.V. was administered by Keon Jin RN; for anticoagulation; 9:45:58 Inflation number: 1 A INTEGRITY RX 3.5 x 15 stent ([id number]) was prepped and advanced across the Mid CX, then inflated to 13 ROSE for 0:10 (min:sec). 9:46:54 Stent catheter was removed intact over wire. 9:46:59 Wire redirected to LAD. 9:50:54 Inflation Number: 1 A INTEGRITY RX 3.5 x 12 stent ([id number]) was prepped and advanced across the Prox LAD. The stent was deployed at 13 ROSE for 0:08 (min:sec). 9:51:06 Inflation number: 2 The stent balloon was then re-inflated across the Prox LAD to 13 ROSE for 0:06 (min:sec). 9:51:21 Stent catheter was removed intact over wire. 9:51:21 Wire removed. 9:51:22 Guide catheter removed. 9:51:31 Procedure ended.(Physican Out) :51:42 Fluoroscopy time 03.10 minutes. 9:51:46 Flurop Dose total: 358 9:51:46 Fluoroscopy dose: 358 mGy 9:51:49 Contrast amount:Isovue 300 40ml. 9:51:51 Sharps counted by scrub and verified by R.N. 9:51:54 TR band inflated with 12cc of air. 9:51:55 Insertion/operative site no bleeding no hematoma. 9:52:04 Post right radial artery:stable, clean and dry 9:52:06 Post Procedure Pulses reassessed and unchanged 9:52:09 Post-procedure physical assessment completed. ASA score P 2 - A patient with mild systemic disease as per Angelito Candelario MD. 9:52:11 Post procedure rhythm: unchanged. 9:52:14 Estimated blood loss: 10 ml 9:52:15 Post procedure instruction explained to patient.Patient verbalizes understanding. 9:52:16 Patient needs reinforcement of post procedure teaching. 9:53:27 Procedure type changed to Cath procedure, PCI procedure, Coronary Stent, Coronary Stent Initial x2, Miscellaneous Procedures, Moderate Sedation up to 15 minutes 9:53:41 Procedure and supply charges have been captured, reviewed, submitted and are correct. 9:53:45 Procedure Complication : No complications 9:53:47 See physician's report for complete and final results. 9:54:03 TR BAND Standard ([id number]) opened to sterile field. 9:54:51 Tegaderm 4 x 4 (1626W) opened to sterile field. 9:55:26 MBrace Wrist Support ([id number]) opened to sterile field. 9:56:26 Vital chart was stopped 9:56:28 Report given to Pre/Post Procedure Room. 9:56:30 Patient transfered to Pre/Post Procedure Room with Stretcher. 9:56:40 Procedure ended. 9:56:40 Full Disclosure recording stopped 9:56:45 End room use (Document Last) Intervention Summary Intervention Notes Time ActionType Lesion and Equipment Action# Pressure Duration Attributes Used 9:45:58 Inflate Mid CX INTEGRITY RX 1 13 00:10 balloon 3.5 x 15 stent ([id number]) 9:50:54 Place stent Prox LAD INTEGRITY RX 1 13 00:09 3.5 x 12 stent ([id number]) 9:51:06 Reinflate Prox LAD INTEGRITY RX 2 13 00:06 stent 3.5 x 12 balloon stent ([id number]) Device Usage Item Name Manufacture Quantity Catalog Hospital Part Current Minima l Lot# / Number Charge Number Stock Stock Serial# Code ACIST Acist 1 22789 107082 999708 276930 20 Syringe Medical (17604) Systems Inc ACIST Hand Acist 1 48168 693435 561679 177315 5 Control Medical (79438) Systems Inc ACIST Acist 1 05160 868849 243105 419303 5 Manifold Medical (09248) Systems Inc Medline Cath Cardinal 1 [id number] 970435 45158 100065 5 Pack Health ([id number]) Bag Decanter Microtek 1 2001S 581825 82149 269650 5 (2001S) Medical Inc. DIAGNOSTIC St Toño 1 918580 016293 554078 216212 30 WIRE .035 260cm J wire (912328) INFLATOR Local Geek PC Repair 1 [id number] 777013 216545 647207 15 Local Geek PC Repair Medical BasixCompak (WB5015) SHEATH 6FR Terumo 1 [id number] 373893 716548 765245 40 Slender ([id number]) GUIDE 6FR Cardinal 1 [id number] 276544 954356 437104 10 XBLAD 3.5 Health catheter ([id number]) WHISPER Gates 1 [id number] 728163 555783 368204 5 190cm wire Vascular ([id number]) INTEGRITY RX Medtronic 1 [id number] 041698 637696 473953 5 [id number] 3.5 x 15 stent ([id number]) INTEGRITY RX Medtronic 1 [id number] 156342 876361 613124 5 [id number] 3.5 x 12 stent ([id number]) TR BAND Terumo 1 [id number] 608241 811802 531845 40 Standard ([id number]) Tegaderm 4 x 3M 1 1626W 191409 422889 079960 5 4 (1626W) MBrace Wrist Advanced 1 [id number] 448240 39505 463292 5 Support Vascular ([id number]) Dynamics Signature Audit Kendall Stage Time Signature Unsigned Intra-Procedure 02/12/2017 Cookie 9:56:55 AM Counts RT(R) Signatures Monitor : Cookie Signature : Counts RT Date : Time : [place] [address] [place] [address]
--- NOTE | ~2017-02-12 | OP ---
PATIENT NAME: MAR SAVAGE MEDICAL RECORD: [id number] :57 LOCATION:D.CAT ADMISSION DATE: SURGEON: SUDHA RAMOS MD DATE OF OPERATION: 02/12/2017 DATE OF SERVICE: 02/12/2017 PROCEDURES: 1. PTCA stent LAD. 2. PTCA stent left circumflex. 3. Selective coronary angiography. INDICATION: Angina and coronary artery disease. PROCEDURE IN DETAIL: After informed consent was obtained and after a detailed explanation of the risks, benefits as well as alternative therapies, the patient elected to proceed with angiogram and angioplasty. The right radial area was prepped and draped in normal sterile fashion. The right radial artery was cannulated via modified Seldinger technique with placement of 6-Romanian sheath. All catheters exchanged through this sheath. FINDINGS: The left anterior descending has a 75% stenosis proximally, the left circumflex has 75% stenosis in mid vessel. The left anterior descending was addressed with a 3.5 x 12 mm Integrity and the left circumflex with a 3.5 x 15 mm Integrity. Result was 0% residual stenosis. OVERALL IMPRESSION: Successful percutaneous transluminal coronary angioplasty stent of the left anterior descending and circumflex, both going from 75% initial stenosis to 0% residual. TRANSINT:[id number] Voice Confirmation ID: [id number] DOCUMENT ID: [id number] SUDHA RAMOS MD at 1323 CC: [id number] DICTATION DATE: 02/12/17 0954 DIESEL ENGINEER: 02/12/17 1204 DEP CLI 02/12/17 [place] [id number]
[2017-02-12 07:36] VITALS: BP 156/79; Ht 177.8 cm; Wt 85.9 kg
[2017-02-12 07:50] LABS: BASOPHILS 0.2 % (0-2); HEMATOCRIT 44.2 % (42.0-54.0); HEMOGLOBIN 15.3 g/dL (13.5-17.5); IMMATURE GRANULOCYTES 0.2 % (0-5); LYMPHOCYTES 35.7 % (15-50); MCH 29.1 pg (26.0-34.0); MCHC 34.6 g/dL (31.0-37.0); MCV 84.2 fL (80.0-100.0); MEAN PLATELET VOLUME 9.9 fL (7.4-10.4); NEUTROPHILS 53.9 % (40-80); PLATELET COUNT 207 10x3/uL (130-400); RBC 5.25 10x6/uL (4.20-6.10); RDW 14.4 % (11.5-14.5); WBC 4.5 10x3/uL (4.8-10.8)
[~2017-02-12 08:04] MED LIST changes: +EFFIENT10 MG PO; +LIPITOR20 MG PO
[2017-02-12 08:10] LABS: ANION GAP 11.3 mmol/L (8-16); CALCIUM 8.9 mg/dL (8.5-10.1); CARBON DIOXIDE 27.6 mmol/L (21.0-32.0); CREATININE - SERUM 1.1 mg/dL (0.6-1.3); POTASSIUM - SERUM 3.9 mmol/L (3.5-5.1)
== END 2017-02-12 14:00 | disposition home or self-care (01) ==
LOC: D.CATH 08:04
PROVIDERS: Internal Medicine Interventional Cardiology
DX: I25.119 Atherosclerotic heart disease of native coronary artery with unspecified angina pectoris (principal); E11.9 Type 2 diabetes mellitus without complications; I10 Essential (primary) hypertension; E78.5 Hyperlipidemia, unspecified; Z01.812 Encounter for preprocedural laboratory examination

== ENCOUNTER 2017-02-23 11:59 | Emergency (ER) | payer MEDICARE ==
[2017-02-12 07:36] VITALS: BMI 27.1
[2017-02-23 12:50] LABS: BASOPHILS 0.2 % (0-2); EOSINOPHILS 2.5 % (0-7); HEMATOCRIT 45.4 % (42.0-54.0); HEMOGLOBIN 15.7 g/dL (13.5-17.5); IMMATURE GRANULOCYTES 0.2 % (0-5); LYMPHOCYTES 35.6 % (15-50); MCH 29.3 pg (26.0-34.0); MCHC 34.6 g/dL (31.0-37.0); MCV 84.7 fL (80.0-100.0); MEAN PLATELET VOLUME 10.3 fL (7.4-10.4); MONOCYTES 7.5 % (2-11); PLATELET COUNT 209 10x3/uL (130-400); RBC 5.36 10x6/uL (4.20-6.10); RDW 14.7 % (11.5-14.5); WBC 4.8 10x3/uL (4.8-10.8)
[2017-02-23 13:03] LABS: ALBUMIN 3.8 g/dL (3.4-5.0); ALKALINE PHOSPHATASE 66 U/L (46-116); ALT (SGPT) 50 U/L (10-68); BILIRUBIN - TOTAL 0.34 mg/dL (0.2-1.3); CALC OSMOLALITY 282 mosm/kg (275-300); CALCIUM 9.2 mg/dL (8.5-10.1); CARBON DIOXIDE 28.6 mmol/L (21.0-32.0); CHLORIDE - SERUM 105 mmol/L (98-107); CREATININE - SERUM 1.2 mg/dL (0.6-1.3); GLUCOSE 123 mg/dL (74-106); POTASSIUM - SERUM 3.8 mmol/L (3.5-5.1); PROTEIN - SERUM 7.1 g/dL (6.4-8.2); SODIUM 141 mmol/L (136-145); UREA NITROGEN 15 mg/dL (7-18); eGFR NON AFRICAN AMERICAN 66 mL/min (90-120)
[2017-02-23 13:14] LABS: CHOL - HDL RATIO 3.7 ratio (2.3-4.9); CHOLESTEROL, TOTAL 114 mg/dL (0-200); CREATINE KINASE 419 UL (21-232); HDL CHOLESTEROL 31 mg/dL (32-96); LDL CHOLESTEROL 42 mg/dL (0-100); LDL-HDL RATIO 1.4 ratio (1.5-3.5); TRIGLYCERIDE 205 mg/dL (30-200)
[2017-02-23 13:15] LABS: TROPONIN-I < 0.017 ng/mL (0.000-0.060)
== END 2017-02-23 15:05 | disposition home or self-care (01) ==
LOC: D.ER 11:59
PROVIDERS: Family Medicine
DX: R00.1 Bradycardia, unspecified (principal); E11.9 Type 2 diabetes mellitus without complications; I10 Essential (primary) hypertension

== ENCOUNTER → 2017-04-06 15:27 | Outpatient (CLI) | payer MEDICARE ==
[2017-02-12 07:36] VITALS: BMI 27.1
== END | disposition home or self-care (01) ==
LOC: D.RAD 15:27
DX: R06.5 Mouth breathing (principal)

== ENCOUNTER → 2017-04-09 09:07 | Outpatient (CLI) | payer MEDICARE, MEDICAID ==
[2017-02-12 07:36] VITALS: BMI 27.1
[2017-04-09 09:46] LABS: BASOPHILS 0.2 % (0-2); EOSINOPHILS 1.7 % (0-7); HEMATOCRIT 46.3 % (42.0-54.0); IMMATURE GRANULOCYTES 0.2 % (0-5); LYMPHOCYTES 34.5 % (15-50); MCHC 34.6 g/dL (31.0-37.0); MEAN PLATELET VOLUME 10.2 fL (7.4-10.4); NEUTROPHILS 58.4 % (40-80); PLATELET COUNT 208 10x3/uL (130-400); RBC 5.51 10x6/uL (4.20-6.10); RDW 14.8 % (11.5-14.5); WBC 5.4 10x3/uL (4.8-10.8)
[2017-04-09 09:59] LABS: PROTEIN - URINE 26.7 mg/dL (0.0-11.9)
[2017-04-09 10:00] LABS: CREATININE - URINE 209.5 mg/dL (30-125)
[2017-04-09 10:14] LABS: APPEARANCE CLEAR (CLEAR); BACTERIA FEW /hpf (NONE SEEN); BILIRUBIN NEGATIVE (NEGATIVE); COLOR YELLOW (YELLOW); EPITHELIAL CELLS RARE /hpf (0-5); GLUCOSE NEGATIVE (NEGATIVE); KETONE NEGATIVE (NEGATIVE); MUCUS <1+ /lpf (NONE SEEN); NITRITE NEGATIVE (NEGATIVE); PROTEIN NEGATIVE (NEGATIVE); RED CELLS - URINE OCC /hpf (0-5); SPECIFIC GRAVITY 1.015 (1.005-1.020); SPERMATOZOA RARE /hpf (NONE SEEN)
[2017-04-09 10:17] LABS: ALBUMIN 3.8 g/dL (3.4-5.0); ANION GAP 10.4 mmol/L (8-16); BILIRUBIN - TOTAL 0.63 mg/dL (0.2-1.3); CALCIUM 8.9 mg/dL (8.5-10.1); CARBON DIOXIDE 28.5 mmol/L (21.0-32.0); CHOL - HDL RATIO 3.7 ratio (2.3-4.9); CREATININE - SERUM 1.2 mg/dL (0.6-1.3); POTASSIUM - SERUM 3.9 mmol/L (3.5-5.1); PROTEIN - SERUM 7.2 g/dL (6.4-8.2); SCREENING PSA (YEARLY) 0.62 ng/mL (0.00-4.00); THYROID STIMULATING HORMONE 1.17 uIU/mL (0.36-3.74)
== END | disposition home or self-care (01) ==
LOC: D.LAB 09:07
PROVIDERS: Family Medicine
DX: Z00.00 Encounter for general adult medical examination without abnormal findings (principal); E78.4 Other hyperlipidemia; E11.9 Type 2 diabetes mellitus without complications; I25.10 Atherosclerotic heart disease of native coronary artery without angina pectoris; I10 Essential (primary) hypertension

== ENCOUNTER 2017-06-01 11:01 | Emergency (ER) | payer MEDICARE ==
[2017-02-12 07:36] VITALS: BMI 27.1
[2017-06-01 11:32] LABS: BASOPHILS 0.2 % (0-2); EOSINOPHILS 1.2 % (0-7); HEMOGLOBIN 15.6 g/dL (13.5-17.5); IMMATURE GRANULOCYTES 0.2 % (0-5); LYMPHOCYTES 23.3 % (15-50); MCH 29.2 pg (26.0-34.0); MCHC 34.7 g/dL (31.0-37.0); MCV 84.3 fL (80.0-100.0); MEAN PLATELET VOLUME 10.5 fL (7.4-10.4); MONOCYTES 6.5 % (2-11); NEUTROPHILS 68.6 % (40-80); PLATELET COUNT 205 10x3/uL (130-400); RBC 5.34 10x6/uL (4.20-6.10); RDW 14.6 % (11.5-14.5); WBC 4.9 10x3/uL (4.8-10.8)
[2017-06-01 11:45] LABS: ALBUMIN 3.8 g/dL (3.4-5.0); ALKALINE PHOSPHATASE 62 U/L (46-116); ALT (SGPT) 53 U/L (10-68); CALC OSMOLALITY 279 mosm/kg (275-300); CALCIUM 8.2 mg/dL (8.5-10.1); CHLORIDE - SERUM 106 mmol/L (98-107); CREATININE - SERUM 1.1 mg/dL (0.6-1.3); GLUCOSE 91 mg/dL (74-106); POTASSIUM - SERUM 3.8 mmol/L (3.5-5.1); PROTEIN - SERUM 7.2 g/dL (6.4-8.2); SODIUM 140 mmol/L (136-145); UREA NITROGEN 14 mg/dL (7-18); eGFR NON AFRICAN AMERICAN 72 mL/min (90-120)
[2017-06-01 11:56] LABS: CHOL - HDL RATIO 3.3 ratio (2.3-4.9); CHOLESTEROL, TOTAL 113 mg/dL (0-200); CKMB 3.6 U/L (0.0-3.6); CREATINE KINASE 356 UL (21-232); HDL CHOLESTEROL 34 mg/dL (32-96); LDL CHOLESTEROL 49 mg/dL (0-100); LDL-HDL RATIO 1.4 ratio (1.5-3.5); MAGNESIUM - SERUM 2.1 mg/dL (1.8-2.4); TRIGLYCERIDE 150 mg/dL (30-200); TROPONIN-I < 0.017 ng/mL (0.000-0.060)
== END 2017-06-01 14:58 | disposition home or self-care (01) ==
LOC: D.ER 11:01
PROVIDERS: Family Medicine
DX: R07.9 Chest pain, unspecified (principal); R06.00 Dyspnea, unspecified; E11.9 Type 2 diabetes mellitus without complications; I10 Essential (primary) hypertension

== ENCOUNTER 2017-11-22 07:14 | Outpatient (CLI) | payer MEDICARE, MEDICAID ==
[~2017-11-22] VITALS: Ht 177.8 cm; Wt 86.4 kg
--- NOTE | ~2017-11-22 | HEMODYNAMI ---
PATIENT:MAR SAVAGE MEDICAL RECORD: [id number] : 57 LOCATION:D.CAT ADMISSION DATE: 11/22/17 Generatedon:11/22/201712:52 Patient name: MAR SAVAGE Patient #: [id number] SSN: : 1955 Date of study: 11/22/2017 Page: Of Hemodynamic Procedure Report Patient Data Patient Demographics Procedure consent was obtained First Name: MAR Gender: Male Last Name: JANETTE : 1955 [facility] Initial: [place] Age: 62 year(s) Patient #: [id number] Race: Black Additional ID: [id number] Contact details Address: [address] [place] [address] State: [place] City: [place] Zip code: [address] Past Medical History Allergies Allergen Reaction Date Comments Reported Other allergy Skin ->rash 02/03/2017 Plavix Other allergy 02/12/2017 PLAVIX Other allergy 11/22/2017 PLAVIX Admission Admission Data Admission Date: 11/22/2017 Admission Time: 7:14 Height (in.): 69 BSA: 2.02 (m2) Height (cm.): 175.26 BMI: 28.06 (kg/m2) Weight (lbs.): 190 Weight (kg.): 86.18 Lab Results Lab Result Date: 11/22/2017 Lab Result Time: 0:00 Biochemistry Name Units Result Min Max BUN mg/dl 16 --(---*)-- 7 18 Creatinine mg/dl 1.3 --(---*)-- 0.6 1.3 CBC Name Units Result Min Max Hemoglobin g/dl 14.9 --(-*--)-- 13.5 17.5 Procedure Procedure Types Cath Procedure Diagnostic Procedure [facility] w/Coronaries FFR/IVUS Intra-Coronary IVUS Initial PCI Procedure Coronary Stent Coronary Stent Initial Procedure Description Procedure Date Procedure Date: 11/22/2017 Procedure Start Time: 12:33 Procedure End Time: 12:49 Procedure Staff Name Function Angelito Candelario MD Performing Physician Evelin Aguilar RT Monitor Bernabe Orta RT Scrub Chica Waller RN Nurse Yareli Pritchett RN Nurse Procedure Data Cath Procedure Fluoroscopy Diagnostic fluoroscopy Total fluoroscopy Time: 3.7 time: 3.7 min min Diagnostic fluoroscopy Total fluoroscopy dose: 657 dose: 657 mGy mGy Contrast Material Contrast Material Type Amount (ml) Isovue 300 84 Entry Location Entry Primary Successful Side Size Upsize Upsize Entry Closure Faust ccessful Closure Location (Fr) 1 (Fr) 2 (Fr) Remarks Device Remarks Radial Right 6 Fr Mechanical artery Short Compression Estimated blood loss: 10 ml Diagnostic catheters Device Type Used For End Catheter Placement DIAGNOSTIC Sundance 110cm 5 Procedure Fr catheter ([id number]) Procedure Complications No complications Procedure Medications Medication Administration Route Dosage Oxygen etCO2 Nasal cannula 2 l/min Heparin Flush Bag added to field 2 bags (1000units/500ml NS) 0.9% NaCl I.V. 100 ml/hr Radial Cocktail added to field 1 syringe (Verapomil 2mg/Nitro 400mcg/Heparin 1500units) Fentanyl I.V. 50 mcg Versed I.V. 1 mg Fentanyl I.V. 50 mcg Versed I.V. 1 mg Radial Cocktail I.A. 1 syringe (Verapomil 2mg/Nitro 400mcg/Heparin 1500units) Heparin Bolus I.V. 4000 units Integrilin (Bolus I.V. 7.9 ml 2mg/ml) Integrilin (Bolus wasted 2.1 ml 2mg/ml) Effient P.O. 60 mg Hemodynamics Rest BSA: 2.02 (m2) HGB: 14.9 (g/dl) O2 Consumption: Estimated: 226.77 (ml/min) O2 Co nsumption indexed: Estimated:112.26 (ml/min/m) Heart Rate: 57 (bpm) Snapshots Pre Cath Intra NCS Post Cath Vital Signs Time Heart Resp SPO2 etCO2 NIBP (mmHg) Rhythm Pain Sedation Rate (ipm) (%) (mmHg) Status Level (bpm) 12:03:30 50 16 96 31.5 156/87(125) NSR 0 (11) 10(A) , No pain 12:07:54 56 16 98 30.8 155/90(124) NSR 0 (11) 10(A) , No pain 12:12:16 46 16 99 30 158/91(139) NSR 0 (11) 10(A) , No pain 12:16:30 59 16 96 30.7 153/89(133) NSR 0 (11) 10(A) , No pain 12:20:50 68 16 96 28.5 151/93(121) NSR 0 (11) 10(A) , No pain 12:25:02 66 17 96 30.7 142/97(126) NSR 0 (11) 10(A) , No pain 12:29:10 69 17 96 29.9 142/95(134) NSR 0 (11) 10(A) , No pain 12:33:26 69 17 98 24 147/92(118) NSR 0 (11) 9(A) , No pain 12:37:42 79 16 93 30.7 127/84(109) NSR 0 (11) 9(A) , No pain 12:41:54 76 16 92 29.9 139/84(106) NSR 0 (11) 9(A) , No pain 12:46:12 78 17 94 26.2 138/82(107) NSR 0 (11) 9(A) , No pain 12:48:54 68 17 95 34.4 133/89(107) NSR 0 (11) 9(A) , No pain Medications Time Medication Route Dose Verified Delivered Reason Not es Effectiveness by by 12:12:50 Oxygen etCO2 2 l/min Angelito Kiser Nasal Andree Rothman RN cannula 12:12:58 Heparin Flush added 2 bags Angelito Kiser used for Bag to Andree Rothman RN procedure (1000units/500ml field NS) 12:13:05 0.9% NaCl I.V. 100 Angelito Kiser Per physician ml/hr Andree Rothman RN 12:13:14 Radial Cocktail added 1 Angelito Kiser used for (Verapomil to syringe Andree Rothman RN procedure 2mg/Nitro field 400mcg/Heparin 1500units) 12:30:08 Fentanyl I.V. 50 mcg Angelito Kiser for sedation Andree Rothman RN 12:30:15 Versed I.V. 1 mg Angelito Kiser for sedation Andree Rothman RN 12:32:53 Fentanyl I.V. 50 mcg Angelito Kiser for sedation Tauth MD Rothman RN 12:32:58 Versed I.V. 1 mg Angelito Kiser for sedation Andree Rothman RN 12:33:41 Radial Cocktail I.A. 1 Angelito Eaton for (Verapomil syringe Andree Candelario MD vasodilation 2mg/Nitro 400mcg/Heparin 1500units) 12:39:02 Heparin Bolus I.V. 4000 Angelito Eaton for units Andree Candelario MD anticoagulation 12:43:25 Integrilin I.V. 7.9 ml Angelito Eaton for (Bolus 2mg/ml) Andree Candelario MD antiplatelet therapy 12:43:32 Integrilin wasted 2.1 ml Angelito Eaton for (Bolus 2mg/ml) Andree Candelario MD antiplatelet therapy 12:45:37 Effient P.O. 60 mg Angelito Eaton for Andree Candelario MD antiplatelet therapy Procedure Log Time Note 11:49:08 Yareli Pritchett RN sent for patient. Start room use. 11:49:09 Time tracking: Regular hours (M-F 7:00 - 5:00) 11:49:13 Plan of Care:Hemodynamics will remain stable., Cardiac rhythm will remain stable., Comfort level will be maintained., Respiratory function will remain adequate., Patient/ family verbilizes understanding of procedure., Procedure tolerated without complication., Recovers from procedure without complications.. 11:49:14 Signed procedure consent form obtained from patient. 11:51:02 H&P Date Dictated: 11/16/2017 Within 30 days and on chart., H&P Addendum completed by physician on day of procedure. (MUST COMPLETE FOR ALL OUTPATIENTS). 11:51:09 Patient Height : 69 inches 11:51:14 Patient Weight : 190 lbs 11:55:32 Lab Result : Creatinine 1.3 mg/dl 11:55:32 Lab Result : BUN 16 mg/dl 11:55:32 Lab Result : Hemoglobin 14.9 g/dl 11:55:54 Patient allergic to Other allergyPLAVIX 12:02:07 ECG and BP/O2 sat monitors applied to patient. 12:02:13 Patient received from Pre/Post Procedure Room to [facility] 1 Alert and oriented. Tansferred to table in Supine position. 12:02:14 Warm blankets applied, and oleg hugger turned on for patient comfort. 12:02:15 Correct patient and procedure confirmed by team. 12:02:16 Vital chart was started 12:02:17 Baseline sample Acquired. 12:02:21 Rhythm: sinus rhythm 12:02:22 Full Disclosure recording started 12:11:23 Pre-procedure instructions explained to patient. 12:11:24 Pre-op teaching completed and patient verbalized understanding. 12:11:31 Family in patients room. 12:11:32 Patient NPO since Midnight. 12:11:36 Is the patient allergic to Iodine/contrast media? No. 12:11:39 Is patient on blood thinner?No 12:11:42 Patient diabetic? Yes. 12:11:45 If diabetic: On Metformin? Yes 12:11:49 If on Metformin: Last Dose? 11/20/2017 12:11:53 Previous problem with sedation/anesthesia? No ? 12:11:54 Snore? Yes 12:11:55 Sleep apnea? No 12:11:57 Deviated septum? No 12:11:57 Opens mouth fully? Yes 12:12:04 Sticks out tongue? Yes 12:12:07 Airway obstruction? No ? 12:12:08 Dentures? No ? 12:12:11 Modified Christophe's test Ulnar < 7 seconds 12:12:13 Patient pain scale 0/10 ?. 12:12:29 IV patent on arrival in left forearm with 0.9% NaCl at [facility]. 12:12:32 Lab results completed and on chart. 12:12:35 Right Radial & Right Groin area was prepped with chlora-prep and draped in sterile fashion 12:12:36 Alarms reviewed by R. N. 12:12:36 Sharps counted by scrub and verified by R.N. 12:12:41 Use device set Radial Dx or PCI 12:12:41 ACIST Syringe (63413) opened to sterile field. 12:12:42 Bag Decanter (2001S) opened to sterile field. 12:12:43 ACIST Hand Control (81155) opened to sterile field. 12:12:43 ACIST Manifold (17549) opened to sterile field. 12:12:44 Tegaderm 4 x 4 (1626W) opened to sterile field. 12:12:48 Medline Cath Pack ([id number]) opened to sterile field. 12:12:50 Oxygen 2 l/min etCO2 Nasal cannula was administered by Rashel Rothman RN; ; 12:12:50 DIAGNOSTIC WIRE .035 260cm J wire (238209) opened to sterile field. 12:12:50 MBrace Wrist Support ([id number]) opened to sterile field. 12:12:51 SHEATH 6Fr Prelude Radial ([id number]) opened to sterile field. 12:12:58 Heparin Flush Bag (1000units/500ml NS) 2 bags added to field was administered by Rashel Rothman RN; used for procedure; 12:13:05 0.9% NaCl 100 ml/hr I.V. was administered by Rashel Rothman RN; Per physician; 12:13:14 Radial Cocktail (Verapomil 2mg/Nitro 400mcg/Heparin 1500units) 1 syringe added to field was administered by Rashel Rothman RN; used for procedure; 12:17:38 Zero performed for pressure channel P1 12:19:05 Zero performed for pressure channel P1 12:29:50 --------ALL STOP TIME OUT------ 12:29:51 Final Timeout: patient, procedure, and site verified with staff and physician. All members of the team are in agreement. 12:29:53 Right Radial & Right Groin site verified by team. 12:29:56 Physical assessment completed. ASA score P 2 - A patient with mild systemic disease as per Angelito Candelario MD. 12:29:59 Sedation plan: IV Moderate Sedation Medication:Versed, Fentanyl 12:30:08 Fentanyl 50 mcg I.V. was administered by Rashel Rothman RN; for sedation; 12:30:15 Versed 1 mg I.V. was administered by Rashel Rothman RN; for sedation; 12:32:42 Procedure started. 12:32:53 Fentanyl 50 mcg I.V. was administered by Rashel Rothman RN; for sedation; 12:32:58 Versed 1 mg I.V. was administered by Rashel Rothman RN; for sedation; 12:33:15 Local anesthetic to right radial artery with Lidocaine 2% by Angelito Candelario MD.INITIAL ACCESS ONLY 12:33:26 Zero performed for pressure channel P1 12:33:41 Radial Cocktail (Verapomil 2mg/Nitro 400mcg/Heparin 1500units) 1 syringe I.A. was administered by Angelito Candelario MD; for vasodilation; 12:33:45 A 6 Fr Short sheath was inserted into the Right Radial artery 12:34:29 A DIAGNOSTIC Sundance 110cm 5 Fr catheter (657979) was advanced over the wire and used for Procedure. 12:34:58 LV gram done using CARRANZA 12:35:01 Injector settings: Ml/sec: 7, Volume: 15, 12:35:29 EF : 55 % 12:36:53 LCA angiography performed. 12:37:02 RCA angiography performed. 12:37:04 Catheter removed. 12:37:42 INFLATOR Merit BasixCompak (XZ5096) opened to sterile field. 12:37:43 CHOICE PT Extra Support 182cm wire ([id number]) opened to sterile field. 12:37:43 [place] IVUS Catheter (88142R) opened to sterile field. 12:37:52 GUIDE 6FR XBLAD 3.5 catheter ([id number]) opened to sterile field. 12:38:16 6 Fr XBLAD 3.5 guide catheter was inserted over the wire 12:39:02 Heparin Bolus 4000 units I.V. was administered by Angelito Candelario MD; for anticoagulation; 12:39:03 CHOICE ES 182 wire advanced. 12:39:37 Wire advanced across lesion. 12:42:47 IVUS catheter advanced over wire. 12:42:48 IVUS pass to LAD lesion performed. 12:42:49 IVUS catheter removed over wire. 12:43:25 Integrilin (Bolus 2mg/ml) 7.9 ml I.V. was administered by Angelito Candelario MD; for antiplatelet therapy; 12:43:32 Integrilin (Bolus 2mg/ml) 2.1 ml wasted was administered by Angelito Candelario MD; for antiplatelet therapy; 12:43:42 Place stent Inflation Number: 1 A RADHA RX 3.5 x 18 stent ([id number]) was prepped and advanced across the Mid LAD. The stent was deployed at 19 ROSE for 0:10 (min:sec). 12:44:10 Stent catheter was removed intact over wire. 12:44:13 Wire removed. 12:44:14 Guide catheter removed. 12:44:17 Procedure ended.(Physican Out) 12:44:46 TR BAND Standard ([id number]) opened to sterile field. 12:44:57 Sheath removed intact; hemostasis achieved with Mechanical Compression to the Right Radial artery. 12:45:37 Effient 60 mg P.O. was administered by Angelito Candelaroi MD; for antiplatelet therapy; 12:46:26 Fluoroscopy time 03.70 minutes. 12:46:35 Fluoroscopy dose: 657 mGy 12:46:35 Flurop Dose total: 657 12:46:42 Contrast amount:Isovue 300 84ml. 12:46:43 Sharps counted by scrub and verified by R.N. 12:46:45 TR band inflated with 11cc of air. 12:46:48 Post-procedure physical assessment completed. ASA score P 2 - A patient with mild systemic disease as per Angelito Candelario MD. 12:46:51 Post procedure rhythm: sinus rhythm 12:46:53 Estimated blood loss: 10 ml 12:47:00 Post procedure instruction explained to patient.Patient verbalizes understanding. 12:47:01 Patient needs reinforcement of post procedure teaching. 12:47:32 Procedure type changed to Cath procedure, Diagnostic procedure, LHC, LHC w/Coronaries, FFR/IVUS, Intra-Coronary IVUS Initial, PCI procedure, Coronary Stent, Coronary Stent Initial 12:48:48 Procedure and supply charges have been captured, reviewed, submitted and are correct. 12:48:51 Procedure Complication : No complications 12:48:52 Vital chart was stopped 12:48:53 See physician's report for complete and final results. 12:48:55 Report given to Pre/Post Procedure Room. 12:48:57 Patient transfered to Pre/Post Procedure Room with Bed. 12:48:59 Procedure ended. 12:48:59 Full Disclosure recording stopped 12:49:02 End room use (Document Last) Intervention Summary Intervention Notes Time ActionType Lesion and Equipment Used Action# Pressure Duration Attributes 12:43:42 Place stent Mid LAD RADHA RX 3.5 x 1 19 00:10 18 stent ([id number]) Device Usage Item Name Manufacture Quantity Catalog Number Hospital Part Current Minimal Lot# / Charge Number Stock Stock Serial# Code ACIST Syringe Acist 1 23113 458941 025762 938983 20 (61873) Medical Collibra Inc Bag Decanter Microtek 1 160056 80546 258394 5 (2002S) Medical Inc. ACIST Hand Acist 1 67263 077653 598607 300925 5 Control (05348) Medical Systems Inc ACIST Manifold Acist 1 76888 117074 155188 177466 5 (54095) Medical Systems Inc Tegaderm 4 x 4 3M 1 1626W 886902 766862 886504 5 (1626W) Medline Cath Cardinal 1 [id number] 640121 36383 878352 5 Pack Health ([id number]) DIAGNOSTIC WIRE St [place] 1 534306 894756 521025 525876 30 .035 260cm J wire (180801) MBrace Wrist Advanced 1 140-0250-00 753112 47294 409328 5 Support Vascular ([id number]) Dynamics SHEATH 6Fr Merit 1 [id number] 953930 490020 420429 5 Prelude Radial Medical ([id number]) DIAGNOSTIC Terumo 1 40-8063 531292 321158 474829 5 Sundance 110cm 5 Fr catheter (735008) INFLATOR Merit Merit 1 OP8410 007698 786870 688859 15 Glass (YN6806) CHOICE PT Extra [place] 1 [id number] 935742 659531 671123 5 Support 182cm Scientific wire ([id number]) [place] 1 88604D 762585 379083 703068 8 [place] IVUS Catheter (76092K) GUIDE 6FR XBLAD Cardinal 1 [id number] 133836 965048 255561 10 3.5 catheter Health (39454747) RADHA RX 3.5 x Medtronic 1 [id number] 075169 6397702 236644 5 [id number] 18 stent ([id number]) TR BAND Terumo 1 [id number] 897686 352989 751103 40 Standard ([id number]) Signature Audit [place] Stage Time Signature Unsigned Intra-Procedure 11/22/2017 Evelin Aguilar 12:52:26 PM RT(R) Signatures Monitor : Evelin Aguilar Signature : RT Date : Time : [facility] [address] [place] [address]
--- NOTE | ~2017-11-22 | OP ---
PATIENT NAME: MAR SAVAGE MEDICAL RECORD: [id number] :57 LOCATION:D.CAT ADMISSION DATE: SURGEON: SUDHA RAMOS MD DATE OF OPERATION: 11/22/2017 PROCEDURES: 1. PTCA stent LAD. 2. Intravascular ultrasound. 3. Left heart catheterization. 4. Selective coronary angiography. 5. Left ventriculogram. INDICATION: Angina and coronary artery disease. PROCEDURE IN DETAIL: After informed consent was obtained and after a detailed description of risks, benefits as well as alternative therapies, the patient elected to proceed with angiogram and angioplasty. The right femoral area was prepped and draped in normal sterile fashion. Right femoral artery was cannulated via modified Seldinger technique with placement of 6-Martiniquais sheath. All catheters exchanged through this sheath. FINDINGS: The left ventriculogram was performed in standard 30-degree CARRANZA view, reveals good cardiac wall motion throughout all segments. Overall ejection fraction estimated 60%. SELECTIVE CORONARY ANGIOGRAPHY: 1. Left main is with no significant angiographic disease. 2. Left anterior descending has previously placed stents. There is 80% in-stent restenosis confirmed by intravascular ultrasound in the proximal aspect. 3. The left circumflex has moderate irregularities, but no flow-limiting stenosis. 4. Right coronary artery has moderate irregularities, but no flow-limiting stenosis. PTCA STENT OF THE LAD: The stent used was a 3.5 x 18 mm [place]. Result was 0% residual stenosis. OVERALL IMPRESSION: Successful percutaneous transluminal coronary angioplasty stent of the left anterior descending going from 80% in-stent restenosis confirmed by intravascular ultrasound to 0% residual stenosis. TRANSINT:[id number] Voice Confirmation ID: [id number] DOCUMENT ID: [id number] SUDHA RAMOS MD at 0924 CC: [id number] DICTATION DATE: 11/22/17 1248 TRAVELING OPERATOR: 11/22/17 1307 DEP CLI 11/22/[address] [address]
[2017-11-22] MEDS ORDERED: ISOSORBIDE MONO30 M1 PO (07:38)
[2017-11-22] MEDS ORDERED: MULTI-DAY VITAM1 TAB PO (07:39)
[2017-11-22 07:47] VITALS: BP 154/90; Ht 177.8 cm; Wt 86.4 kg
[2017-11-22 08:05] LABS: BASOPHILS 0.2 % (0-2); EOSINOPHILS 2.5 % (0-7); HEMATOCRIT 43.6 % (42.0-54.0); HEMOGLOBIN 14.9 g/dL (13.5-17.5); IMMATURE GRANULOCYTES 0.2 % (0-5); LYMPHOCYTES 32.2 % (15-50); MCH 28.9 pg (26.0-34.0); MCHC 34.2 g/dL (31.0-37.0); MCV 84.7 fL (80.0-100.0); MEAN PLATELET VOLUME 10.7 fL (7.4-10.4); MONOCYTES 6.4 % (2-11); NEUTROPHILS 58.5 % (40-80); PLATELET COUNT 201 10x3/uL (130-400); RBC 5.15 10x6/uL (4.20-6.10); RDW 14.6 % (11.5-14.5); WBC 4.9 10x3/uL (4.8-10.8)
[2017-11-22 08:07] LABS: CALCIUM 8.3 mg/dL (8.5-10.1); CARBON DIOXIDE 24.9 mmol/L (21.0-32.0); CREATININE - SERUM 1.3 mg/dL (0.6-1.3); POTASSIUM - SERUM 3.9 mmol/L (3.5-5.1)
[2017-11-22] MEDS ORDERED: EFFIENT10 MG PO (13:09)
== END 2017-11-22 17:00 ==
LOC: D.CATH 07:14
PROVIDERS: Internal Medicine Interventional Cardiology
DX: I25.119 Atherosclerotic heart disease of native coronary artery with unspecified angina pectoris (principal); T82.855A Stenosis of coronary artery stent, initial encounter; Z01.812 Encounter for preprocedural laboratory examination
CPT/HCPCS: 92978; 93458; C9600

== ENCOUNTER → 2018-03-16 11:28 | Outpatient (CLI) | payer MEDICARE, MEDICAID ==
[2017-11-22 07:47] VITALS: BMI 27.3
[~2018-03-16 11:28] MED LIST changes: +ISOSORBIDE MONO30 M1 PO; +MULTI-DAY VITAM1 TAB PO
[2018-03-16 12:26] LABS: HEMOGLOBIN 16.1 g/dL (13.5-17.5); MCV 82.7 fL (80.0-100.0); MEAN PLATELET VOLUME 10.1 fL (7.4-10.4); PLATELET COUNT 208 10x3/uL (130-400); RBC 5.56 10x6/uL (4.20-6.10); RDW 14.5 % (11.5-14.5); WBC 4.7 10x3/uL (4.8-10.8)
[2018-03-16 12:55] LABS: ALBUMIN 3.9 g/dL (3.4-5.0); ANION GAP 12.1 mmol/L (8-16); BILIRUBIN - TOTAL 0.45 mg/dL (0.2-1.3); CARBON DIOXIDE 27.6 mmol/L (21.0-32.0); CHOL - HDL RATIO 3.4 ratio (2.3-4.9); CREATININE - SERUM 1.2 mg/dL (0.6-1.3); LDL-HDL RATIO 1.8 ratio (1.5-3.5); POTASSIUM - SERUM 3.7 mmol/L (3.5-5.1); PROTEIN - SERUM 7.4 g/dL (6.4-8.2); THYROID STIMULATING HORMONE 1.29 uIU/mL (0.36-3.74)
[2018-03-16 12:57] LABS: SCREENING PSA (YEARLY) 0.58 ng/mL (0.00-4.00)
[2018-03-16 14:19] LABS: LYMPHOCYTES 27 % (15-50); MONOCYTES 10 % (2-11); NEUTROPHILS 61 % (40-80); PLATELET ESTIMATE NORMAL
[2018-03-16 14:35] LABS: APPEARANCE CLEAR (CLEAR); BILIRUBIN NEGATIVE (NEGATIVE); COLOR YELLOW (YELLOW); GLUCOSE 250 mg/dL (NEGATIVE); KETONE NEGATIVE (NEGATIVE); NITRITE NEGATIVE (NEGATIVE); PROTEIN NEGATIVE (NEGATIVE); UROBILINOGEN NORMAL (NORMAL)
[2018-03-17 10:20] LABS: CREATININE - URINE 64.2 mg/dL (Not Estab.); MICROALBUMIN - URINE 29.5 ug/mL (Not Estab.)
== END | disposition home or self-care (01) ==
LOC: D.LAB 11:28
PROVIDERS: Family Medicine
DX: I10 Essential (primary) hypertension (principal); Z12.5 Encounter for screening for malignant neoplasm of prostate; E11.9 Type 2 diabetes mellitus without complications; I25.10 Atherosclerotic heart disease of native coronary artery without angina pectoris; K21.9 Gastro-esophageal reflux disease without esophagitis

== ENCOUNTER → 2018-10-14 10:31 | Outpatient (CLI) | payer MEDICARE, MEDICAID ==
[2017-11-22 07:47] VITALS: BMI 27.3
== END | disposition home or self-care (01) ==
LOC: D.LAB 10:31
PROVIDERS: ATTEND Family Medicine
DX: M54.5 Low back pain (principal)

== ENCOUNTER → 2018-12-21 09:47 | Outpatient (CLI) | payer MEDICARE, MEDICAID ==
[2017-11-22 07:47] VITALS: BMI 27.3
[~2018-12-21 09:47] MED LIST changes: +AMITRIPTYLINE H50 MG PO; -GLUCOPHAGE1000 MG PO; +GLUCOPHAGE500 MG PO; +HYDROCODON-ACE1 EAC7 PO; +OMEPRAZOLE20 M1 PO; +ZANAFLEX4 MG PO
== END | disposition home or self-care (01) ==
LOC: D.RAD 09:47
PROVIDERS: ATTEND Family Medicine
DX: M25.561 Pain in right knee (principal); M25.562 Pain in left knee

== ENCOUNTER 2019-01-01 11:32 | Observation (INO) | payer MEDICARE, MEDICAID ==
[~2019-01-01] VITALS: Ht 177.8 cm; Wt 86.4 kg
--- NOTE | ~2019-01-01 | HEMODYNAMI ---
PATIENT:MAR SAVAGE MEDICAL RECORD: [id number] : 57 LOCATION:[facility] D.2117 ADMISSION DATE: 01/01/19 Generatedon:01/02/201912:00 Patient name: MAR SAVAGE Patient #: [id number] SSN: [id number] : 1955 Date of study: 01/02/2019 Page: Of Hemodynamic Procedure Report Patient Data Patient Demographics Procedure consent was obtained First Name: MAR Gender: Male Last Name: JANETTE : 1955 [facility] Initial: BRITTON Age: 63 year(s) Patient #: [id number] Race: Black SSN: [id number] Additional ID: [id number] Contact details Address: [address] [place] [address] State: [place] City: [place] Zip code: [address] Past Medical History Allergies Allergen Reaction Date Comments Reported Other allergy Skin ->rash 02/03/2017 Plavix Other allergy 02/12/2017 PLAVIX Other allergy 11/22/2017 PLAVIX Other allergy 01/02/2019 clopidogrel Other allergy 01/02/2019 pLAVIX Admission Admission Data Admission Date: 01/01/2019 Admission Time: 13:05 Arrival Date: 01/02/2019 Arrival Time: 0:00 Admit Source: Other Insurance Payor: Medicare Room #: D.2117 [facility] #: [id number] Height (in.): 70 BSA: 2.04 (m2) Height (cm.): 177.8 BMI: 27.3 (kg/m2) Weight (lbs.): 190.26 Weight (kg.): 86.3 Lab Results Lab Result Date: 01/02/2019 Lab Result Time: 0:00 Biochemistry Name Units Result Min Max BUN mg/dl 11 --(-*--)-- 7 18 Creatinine mg/dl 1 --(--*-)-- 0.6 1.3 eGFR ml/min 90 --(*---)-- 90 120 AM Troponin l ng/ml 0.016 --(-*--)-- 0 0.06 CBC Name Units Result Min Max Hematocrit % 44.6 --(*---)-- 42 54 Hemoglobin g/dl 15.1 --(-*--)-- 13.5 17.5 Procedure Procedure Types Cath Procedure Diagnostic Procedure [facility] w/Coronaries FFR/IVUS FFR Initial PCI Procedure Coronary Stent Coronary Stent Initial Procedure Description Procedure Date Procedure Date: 01/02/2019 Procedure Start Time: 11:39 Procedure End Time: 11:58 Procedure Staff Name Function Angelito Candelario MD Performing Physician Evelin Aguilar RT Monitor Ria Chavez RT Monitor Yareli Pritchett RN Nurse Bernabe Orta RT Scrub Procedure Data Cath Procedure Fluoroscopy Diagnostic fluoroscopy Total fluoroscopy Time: 4 time: 4 min min Diagnostic fluoroscopy Total fluoroscopy dose: 520 dose: 520 mGy mGy Contrast Material Contrast Material Type Amount (ml) Isovue 300 95 Entry Location Entry Primary Successful Side Size Upsize Upsize Entry Closure Faust ccessful Closure Location (Fr) 1 (Fr) 2 (Fr) Remarks Device Remarks Radial Right 6 Fr Mechanical artery Short Compression Estimated blood loss: 10 ml Diagnostic catheters Device Type Used For End Catheter Placement DIAGNOSTIC [place] 110cm 5 Procedure Fr catheter ([id number]) Procedure Complications No complications Procedure Medications Medication Administration Route Dosage Oxygen etCO2 Nasal cannula 2 l/min Lidocaine 2% added to field 20 Heparin Flush Bag added to field 2 bags (1000units/500ml NS) Radial Cocktail I.A. 1 syringe (Verapamil 2mg/Nitro 400mcg/Heparin 1500units) Versed I.V. 1 mg Fentanyl I.V. 50 mcg Versed I.V. 1 mg Fentanyl I.V. 50 mcg Heparin Bolus I.V. 4000 units Hemodynamics Rest BSA: 2.04 (m2) HGB: 15.1 (g/dl) O2 Consumption: Estimated: 231.31 (ml/min) O2 Co nsumption indexed: Estimated:113.39 (ml/min/m) Heart Rate: 60 (bpm) Snapshots Pre Cath Intra NCS Post Cath Vital Signs Time Heart Resp SPO2 etCO2 NIBP (mmHg) Rhythm Pain Sedation Rate (ipm) (%) (mmHg) Status Level (bpm) 11:33:24 60 21 98 33.6 167/98(126) NSR 0 (11) 10(A) , No pain 11:37:38 63 20 96 36.6 162/90(136) NSR 0 (11) 10(A) , No pain 11:41:52 76 12 95 41.8 147/86(120) NSR 0 (11) 10(A) , No pain 11:46:00 81 12 95 40.3 142/84(112) NSR 0 (11) 9(A) , No pain 11:50:06 79 13 94 41.1 137/83(120) NSR 0 (11) 9(A) , No pain 11:54:10 78 13 95 41.8 148/84(111) NSR 0 (11) 10(A) , No pain 11:58:17 76 13 95 41.1 147/86(117) NSR 0 (11) 10(A) , No pain Medications Time Medication Route Dose Verified Delivered Reason Not es Effectiveness by by 11:36:46 Oxygen etCO2 2 l/min Angelito Downs used for Nasal Andree Pritchett RN procedure cannula 11:36:53 Lidocaine 2% added 20ml Angelito Eaton for local to vial Andree Candelario MD anesthetic field 11:36:59 Heparin Flush added 2 bags Angelito Eaton used for Bag to Andree Candelario MD procedure (1000units/500ml field NS) 11:38:54 Versed I.V. 1 mg Angelito Downs for sedation Andree Pritchett RN 11:38:59 Fentanyl I.V. 50 mcg Angelito Downs for sedation Andree Pritchett RN 11:41:45 Radial Cocktail I.A. 1 Angelito Eaton for (Verapamil syringe Andree Candelario MD vasodilation 2mg/Nitro 400mcg/Heparin 1500units) 11:42:20 Versed I.V. 1 mg Angelito Downs for sedation Andree Pritchett RN 11:42:24 Fentanyl I.V. 50 mcg Angelito Downs for sedation Andree Pritchett RN 11:49:29 Heparin Bolus I.V. 4000 Angelito Downs for units Andree Pritchett RN anticoagulation Procedure Log Time Note 11:26:44 Admit Source: Other 11:26:45 Insurance Payor : Medicare 11:27:19 Procedure Status Elective Heart Cath (OP). 11:27:22 Yareli Pritchett RN sent for patient. Start room use. 11:27:25 Time tracking: Regular hours (M-F 7:00 - 5:00) 11:27:31 Plan of Care:Hemodynamics will remain stable., Cardiac rhythm will remain stable., Comfort level will be maintained., Respiratory function will remain adequate., Patient/ family verbilizes understanding of procedure., Procedure tolerated without complication., Recovers from procedure without complications.. 11:27:37 Patient received from Med II to CCL 1 Alert and oriented. Tansferred to table in Supine position. 11:27:43 Signed procedure consent form obtained from patient. 11:27:44 Warm blankets applied, and oleg hugger turned on for patient comfort. 11:28:20 Correct patient and procedure confirmed by team. 11:28:21 ECG and BP/O2 sat monitors applied to patient. 11:28:40 Lab results completed and on chart. 11:28:45 Stress Test: no; N/A ? 11:29:07 Risk of Mortality: .1 11:29:09 Risk of blood transfusion: .2 11:29:12 Risk of BLANCA: .1 11:30:01 H&P Date Dictated: 01/02/2019 New H&P dictated by physician.. 11:30:03 Pre-procedure instructions explained to patient. 11:30:03 Pre-op teaching completed and patient verbalized understanding. 11:30:06 Family in waiting room. 11:30:10 Patient NPO since Breakfast. 11:30:24 Patient allergic to Other allergypLAVIX 11:30:28 Is the patient allergic to Iodine/contrast media? No. 11:30:31 Was the patient premedicated? Yes 11:30:33 Is patient on blood thinner?Yes 11:30:49 ACC The patient was administered the following blood thiners within the last 24 hours: ACCEffient 11:30:52 Patient diabetic? Yes. 11:30:54 If diabetic: On Metformin? Yes 11:31:13 If on Metformin: Last Dose? 01/01/2019 11:31:28 Previous problem with sedation/anesthesia? No ? 11:31:30 Snore? Yes 11:31:31 Sleep apnea? No 11:31:41 Deviated septum? No 11:31:42 Opens mouth fully? Yes 11:31:43 Sticks out tongue? Yes 11:31:45 Airway obstruction? No ? 11:31:47 Dentures? No ? 11:31:55 Pre procedure: right dorsailis pedis pulse 1+ Palpable, but thready & weak; easily obliterated 11:32:02 Modified Christophe's test Ulnar < 7 seconds 11:32:06 Patient pain scale 0/10 ?. 11:32:14 IV patent on arrival in left antecubital with 0.9% NaCl at [facility]. 11:32:22 Vital chart was started 11:32:26 Baseline sample Acquired. 11:32:36 Rhythm: sinus rhythm 11:32:37 Full Disclosure recording started 11:32:53 Right Radial & Right Groin area was prepped with chlora-prep and draped in sterile fashion 11:32:55 Alarms reviewed by R. N. 11:32:55 Sharps counted by scrub and verified by R.N. 11:33:06 Use device set Radial Dx or PCI 11:33:22 ACIST Syringe (85966) opened to sterile field. 11:33:23 Bag Decanter (2002S) opened to sterile field. 11:33:24 ACIST Hand Control (36962) opened to sterile field. 11:33:25 ACIST Manifold (33855) opened to sterile field. 11:33:26 Tegaderm 4 x 4 (1626W) opened to sterile field. 11:33:28 Medline Cath Pack ([id number]) opened to sterile field. 11:33:29 MBrace Wrist Support ([id number]) opened to sterile field. 11:33:34 EMERALD Guide Wire (958-566) opened to sterile field. 11:33:36 SHEATH 6FR RAIN (1613622) opened to sterile field. 11:35:49 Patient Height : 70 inches 11:35:54 Patient Weight : 190.26 lbs 11:36:08 Arrival Date: 01/02/2019 12:00:00 AM 11:36:25 Diagnostic Cath Status : Elective 11:36:46 Oxygen 2 l/min etCO2 Nasal cannula was administered by Yareli Pritchett RN; used for procedure; Verbal order read back and verified. 11:36:53 Lidocaine 2% 20ml vial added to field was administered by Angelito Candelario MD; for local anesthetic; Verbal order read back and verified. 11:36:59 Heparin Flush Bag (1000units/500ml NS) 2 bags added to field was administered by Angelito Candelario MD; used for procedure; Verbal order read back and verified. 11:37:04 --------ALL STOP TIME OUT------ 11:37:05 Final Timeout: patient, procedure, and site verified with staff and physician. All members of the team are in agreement. 11:37:08 Right Radial & Right Groin site verified by team. 11:37:12 Fire Safety Assessment: A--An alcohol-based skin anteseptic being used preoperatively., C--Open oxygen or nitrous oxide is being used., D--An ESU, laser, or fiber-optic light is being used. 11:37:16 Physical assessment completed. ASA score P 2 - A patient with mild systemic disease as per Angelito Candelario MD. 11:37:19 1) 90+ Normal kidney functon but urine findings or structural abnormalities or genetic trait point to kidney disease. 11:37:23 Maximum allowable contrast dose (3.7 X eGFR X 0.75)253 ml. 11:37:29 Sedation plan: IV Moderate Sedation Medication:Versed, Fentanyl 11:37:38 Procedure started. 11:38:54 Versed 1 mg I.V. was administered by Yareli Pritchett RN; for sedation; Verbal order read back and verified. 11:38:59 Fentanyl 50 mcg I.V. was administered by Yareli Pritchett RN; for sedation; Verbal order read back and verified. 11:39:52 Local anesthetic to right radial artery with Lidocaine 2% by Angelito Candelario MD.INITIAL ACCESS ONLY 11:40:04 Zero performed for pressure channel P1 11:40:50 A 6 Fr Short sheath was inserted into the Right Radial artery 11:41:06 A DIAGNOSTIC [place] 110cm 5 Fr catheter ([id number]) was advanced over the wire and used for Procedure. 11:41:45 Radial Cocktail (Verapamil 2mg/Nitro 400mcg/Heparin 1500units) 1 syringe I.A. was administered by Angelito Candelario MD; for vasodilation; Verbal order read back and verified. 11:42:15 LV gram done using CARRANZA 11:42:20 Versed 1 mg I.V. was administered by Yareli Pritchett RN; for sedation; Verbal order read back and verified. 11:42:20 Injector settings: Ml/sec: 5, Volume: 15, 11:42:24 Fentanyl 50 mcg I.V. was administered by Yareli Pritchett RN; for sedation; Verbal order read back and verified. 11:42:56 EF : 55 % 11:42:59 LV hemodynamics recorded. 11:43:14 RCA angiography performed. 11:43:18 Catheter exchanged over wire. 11:43:31 GUIDE 6FR XBLAD 3.5 catheter ([id number]) opened to sterile field. 11:44:00 6 Fr XBLAD 3.5 guide catheter was inserted over the wire 11:44:36 LCA angiography performed. 11:45:20 Guide catheter removed. 11:45:33 GUIDE 6FR XBC 3 (96963379) opened to sterile field. 11:45:47 6 Fr XBC 3 guide catheter was inserted over the wire 11:46:15 [employer] Verrata Plus pressure wire (92281W) opened to sterile field. 11:46:21 INFLATOR Merit BasixCompak ([id number]) opened to sterile field. 11:48:37 FFR/IFR wire advanced. 11:48:56 Wire advanced across lesion. 11:49:29 Heparin Bolus 4000 units I.V. was administered by Yareli Pritchett RN; for anticoagulation; Verbal order read back and verified. 11:49:47 mLAD lesion measured at .85 with IFR 11:50:14 Pre PCI Site: Venetie Ira mLAD has 70% stenosis. 11:52:13 Place stent Inflation Number: 1 A RADHA RX 2.5 x 15 stent ([id number]) was prepped and advanced across the Mid LAD . The stent was deployed at 11 ROSE for 0:00 (min:sec) . 11:52:40 Stent catheter was removed intact over wire. 11:52:41 Wire removed. 11:52:42 Guide catheter removed. 11:52:53 Procedure ended.(Physican Out) 11:53:07 Sheath removed intact; hemostasis achieved with Mechanical Compression to the Right Radial artery. 11:53:14 Fluoroscopy time 04.00 minutes. 11:53:19 Flurop Dose total: 520 11:53:19 Fluoroscopy dose: 520 mGy 11:53:25 Dose Area Product 41604 mGy/cm. 11:53:30 Contrast amount:Isovue 300 95ml. 11:53:32 Maximum allowable dose exceeded? No. 11:53:33 Sharps counted by scrub and verified by R.N. 11:53:49 ZEPHYR REGULAR TR BAND (898839) opened to sterile field. 11:53:58 Purlear band inflated with 10cc of air. 11:54:32 Post Procedure Pulses reassessed and unchanged 11:54:52 Post-procedure physical assessment completed. ASA score P 2 - A patient with mild systemic disease as per Angelito Candelario MD. 11:54:55 Post procedure rhythm: unchanged. 11:54:59 Estimated blood loss: 10 ml 11:55:01 Post procedure instruction explained to patient.Patient verbalizes understanding. 11:55:18 ACT drawn and resulted at 272 seconds. (normal therapeutic range 180-240 seconds). 11:55:25 Patient needs reinforcement of post procedure teaching. 11:56:39 Procedure type changed to Cath procedure, Diagnostic procedure, LHC, LHC w/Coronaries, FFR/IVUS, FFR Initial, PCI procedure, Coronary Stent, Coronary Stent Initial 11:57:57 Procedure and supply charges have been captured, reviewed, submitted and are correct. 11:58:02 Procedure Complication : No complications 11:58:05 Vital chart was stopped 11:58:08 [facility] Findings: MVD- PCI performed (see procedure note) 11:58:11 Operative report dictated upon procedure completion. 11:58:12 Operative report dictated upon procedure completion. 11:58:13 See physician's report for complete and final results. 11:58:15 Report given to [facility]. 11:58:19 Patient transfered to [facility] with Bed. 11:58:31 Procedure ended. 11:58:31 Full Disclosure recording stopped 11:58:41 ACC-PCI Only Patient was given prescriptions, or instructed by Angelito Candelario MD to start/continue the following medications upon discharge: Effient 11:58:43 End room use (Document Last) 11:59:35 End room use (Document Last) 11:59:58 End room use (Document Last) Intervention Summary Intervention Notes Time ActionType Lesion and Equipment Used Action# Pressure Duration Attributes 11:52:13 Place stent Mid LAD RADHA RX 2.5 x 1 11 00:00 15 stent ([id number]) Device Usage Item Name Manufacture Quantity Catalog Hospital Part Current Minimal Lot# / Number Charge Number Stock Stock Serial# Code ACIST Syringe Acist 1 90692 934026 115926 659923 20 (22882) Medical Systems Inc Bag Decanter Microtek 1 2001S 728437 67387 193121 5 (2001S) Medical Inc. ACIST Hand Acist 1 54956 220513 260248 164506 5 Control Medical (47260) Systems Inc ACIST Manifold Acist 1 03601 297711 688572 676493 5 (39687) Medical Systems Inc Tegaderm 4 x 4 3M 1 1626W 959730 091468 462337 5 (1626W) Medline Cath Medline 1 [id number] 170567 53638 197391 5 Pack ([id number]) MBrace Wrist Advanced 1 140-0250-00 149817 14152 239241 5 Support Vascular (549101409) Dynamics EMERALD Guide Cardinal 1 502-455 366163 376105 151753 5 Wire (502455) Health SHEATH 6FR Cardinal 1 6886354 491992 3072533 626358 5 RAIN (3815063) Health DIAGNOSTIC Terumo 1 405013 469874 108216 291624 5 [place] 110cm 5 Fr catheter (859202) GUIDE 6FR Cardinal 1 90935825 565132 770291 356569 10 XBLAD 3.5 Health catheter (78985048) GUIDE 6FR XBC Cardinal 1 97885153 904216 76717 351313 5 3 (20791378) Health [place] 1 95685P 843200 888609914 767977 5 Verrata Plus pressure wire (07322O) INFLATOR Merit Merit 1 XS7088 294399 283192 772499 15 BasixCompak Medical (WZ7683) RADHA RX 2.5 x Medtronic 1 [id number] 453293 2350157 817049 5 [id number] 15 stent ([id number]) ZEPHYR REGULAR Cardinal 1 003611 441902 8911787 915208 5 myOrder (056081) Signature Audit [place] Stage Time Signature Unsigned Intra-Procedure 01/02/2019 Ria Chavez 11:59:35 AM RT(R) Intra-Procedure 01/02/2019 Yareli Pritchett RN 11:59:59 AM Intra-Procedure 01/02/2019 Angelito Candelario 12:00:18 PM [facility] [address] [place] [address]
[~2019-01-01 11:32] MED LIST changes: -AMITRIPTYLINE H50 MG PO; -HYDROCODON-ACE1 EAC7 PO; -OMEPRAZOLE20 M1 PO; -ZANAFLEX4 MG PO
[2019-01-01 12:01] LABS: BASOPHILS 0.2 % (0-2); EOSINOPHILS 2.8 % (0-7); HEMATOCRIT 44.6 % (42.0-54.0); HEMOGLOBIN 15.1 g/dL (13.5-17.5); IMMATURE GRANULOCYTES 0.4 % (0-5); LYMPHOCYTES 37.9 % (15-50); MCH 29.4 pg (26.0-34.0); MCHC 33.9 g/dL (31.0-37.0); MCV 86.9 fL (80.0-100.0); MEAN PLATELET VOLUME 9.9 fL (7.4-10.4); MONOCYTES 6.6 % (2-11); NEUTROPHILS 52.1 % (40-80); PLATELET COUNT 199 10x3/uL (130-400); RBC 5.13 10x6/uL (4.20-6.10); RDW 14.5 % (11.5-14.5); WBC 4.6 10x3/uL (4.8-10.8)
[2019-01-01 12:12] LABS: CALC OSMOLALITY 280 mosm/kg (275-300); CALCIUM 8.5 mg/dL (8.5-10.1); CARBON DIOXIDE 27.2 mmol/L (21.0-32.0); CHLORIDE - SERUM 106 mmol/L (98-107); GLUCOSE 109 mg/dL (74-106); SODIUM 141 mmol/L (136-145); UREA NITROGEN 11 mg/dL (7-18); eGFR NON AFRICAN AMERICAN 80 mL/min (90-120)
[2019-01-01 12:13] VITALS: BP 139/88
[2019-01-01 12:13] LABS: APTT 30.7 SECONDS (22.8-39.4); INR 0.99 (0.85-1.17); PROTIME 12.6 SECONDS (11.6-15.0)
[2019-01-01 12:27] LABS: ALBUMIN 3.8 g/dL (3.4-5.0); ALKALINE PHOSPHATASE 74 U/L (46-116); ALT (SGPT) 64 U/L (10-68); BILIRUBIN - TOTAL 0.64 mg/dL (0.2-1.3); CKMB 2.2 U/L (0.0-3.6); CREATINE KINASE 260 UL (21-232); PROTEIN - SERUM 7.3 g/dL (6.4-8.2)
[2019-01-01 12:35] LABS: TROPONIN-I 0.016 ng/mL (0.000-0.060)
--- NOTE | 2019-01-01 13:56 | NUR ---
RECEIVED PT TO ROOM 2116 VIA W/C AAOX4 RESP UNLABORED SKIN W/D COLOR WNL TELEMETRY APPLIED SR RATE 64 LAC SALINE LOCK INTACT SITE FREE OF REDNESS OR EDEMA
[2019-01-01 14:14] VITALS: BP 153/79; BMI 25.8
[2019-01-01] MEDS ORDERED: ISOSORBIDE MONO30 M1 PO (16:36)
[2019-01-01] MEDS ORDERED: NITROQUICK0.4 MG SL (16:37)
[2019-01-01] MEDS ORDERED: OMEPRAZOLE20 M1 PO (16:39)
[2019-01-01] MEDS ORDERED: ZANAFLEX4 MG PO (16:41)
[2019-01-01] MEDS ORDERED: AMITRIPTYLINE H50 MG PO (16:43)
[2019-01-01] MEDS ORDERED: COREG12.5 MG PO (16:45)
[2019-01-01] MEDS ORDERED: HYDROCODON-ACE1 EAC7 PO (16:50)
[2019-01-01 18:21] VITALS: BP 144/87
[2019-01-01 20:00] VITALS: BP 126/79
--- NOTE | 2019-01-01 20:10 | NUR ---
RECEIVED BEDSIDE SHIFT REPORT. ALERT AND ORIENTED X4. UP AD KALEY. O2 AT 2 LITERS PER N/C. LUNG SOUNDS CLEAR. ABSX4Q. IV TO LEFT AC SL.. TELEMETRY IN PLACE. EDUCATED ON NPO STATUS AFTER MN. DENIES ANY PAIN AT THIS TIME OR NEEDS.
[2019-01-02] VITALS: BP 128/68
[2019-01-02 04:00] VITALS: BP 135/83
[2019-01-02 05:29] LABS: BASOPHILS 0.2 % (0-2); EOSINOPHILS 2.5 % (0-7); HEMOGLOBIN 14.8 g/dL (13.5-17.5); IMMATURE GRANULOCYTES 0.2 % (0-5); MCH 29.5 pg (26.0-34.0); MCHC 33.6 g/dL (31.0-37.0); MCV 87.6 fL (80.0-100.0); MEAN PLATELET VOLUME 10.4 fL (7.4-10.4); MONOCYTES 7.2 % (2-11); NEUTROPHILS 60.9 % (40-80); PLATELET COUNT 206 10x3/uL (130-400); RBC 5.02 10x6/uL (4.20-6.10); RDW 14.6 % (11.5-14.5); WBC 5.3 10x3/uL (4.8-10.8)
[2019-01-02 06:12] LABS: ALBUMIN 3.5 g/dL (3.4-5.0); ALKALINE PHOSPHATASE 77 U/L (46-116); ALT (SGPT) 61 U/L (10-68); BILIRUBIN - TOTAL 0.41 mg/dL (0.2-1.3); CALCIUM 8.4 mg/dL (8.5-10.1); CARBON DIOXIDE 27.9 mmol/L (21.0-32.0); CHLORIDE - SERUM 107 mmol/L (98-107); CHOL - HDL RATIO 3.5 ratio (2.3-4.9); CHOLESTEROL, TOTAL 105 mg/dL (0-200); CKMB 1.4 U/L (0.0-3.6); CREATINE KINASE 156 UL (21-232); CREATININE - SERUM 1.2 mg/dL (0.6-1.3); GLUCOSE 143 mg/dL (74-106); HDL CHOLESTEROL 30 mg/dL (32-96); LDL CHOLESTEROL 57 mg/dL (0-100); LDL-HDL RATIO 1.9 ratio (1.5-3.5); POTASSIUM - SERUM 3.8 mmol/L (3.5-5.1); PROTEIN - SERUM 6.9 g/dL (6.4-8.2); SODIUM 143 mmol/L (136-145); TRIGLYCERIDE 94 mg/dL (30-200); eGFR NON AFRICAN AMERICAN 65 mL/min (90-120)
[2019-01-02 06:13] LABS: CALC OSMOLALITY 287 mosm/kg (275-300); TROPONIN-I < 0.017 ng/mL (0.000-0.060); UREA NITROGEN 15 mg/dL (7-18)
[2019-01-02 07:38] VITALS: BP 153/82
[2019-01-02 09:20] VITALS: Ht 177.8 cm; Wt 86.4 kg
--- NOTE | 2019-01-02 11:34 | NUR ---
PRE-OPS GIVEN. TO RADIO ARTIST BY BED.
--- NOTE | 2019-01-02 12:20 | NUR ---
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 RIGHT WRIST STABLE WITH TR BAND INTACT. VS WNL. WILL MONITOR.
--- NOTE | 2019-01-02 16:12 | NUR ---
ON HOLD FOR 13:43 MIN TO SPEAK TO A PHARMACIST FOR EFFIENT 10 MG # 30 WITH 3 REFILLS CALLED TO [facility].
--- NOTE | 2019-01-02 16:24 | NUR ---
Z-BAND DCD WITHOUT BLEEDING OR HEMATOMA NOTED. IV AND TELEMETRY DCD. DC PLANS GIVEN. UNDERSTANDING VOICED. EFFIENT CALLED INTO [facility] BY TIA CHRIS. ESCORTED TO CAR BY W/C.
--- NOTE | 2019-01-03 08:36 | MORECARE ---
CASE MANAGEMENT DISCHARGE SUMMARY PATIENT: MAR EDWARD UNIT: [id number] ADM DATE: 01/01/19 AGE: 63 : 57 SEX: M ROOM/BED: D.2117 AUTHOR: JAYLA AZUL PHYSICIAN: REFERRING PHYSICIAN: SUDHA RAMOS MD DATE OF SERVICE: 01/03/19 Discharge Plan Patient Name: MAR EDWARD [facility] 1955 Planned Disposition: Home Anticipated Discharge Date: 01/02/19 Discharge Date: 01/02/2019 Expected LOS: 1 Initial Reviewer: [email or web address] Initial Review Date: 01/03/2019 Generated: 01/03/19 9:36 am Coverage Notice Reviewer: [email or web address] Shad Medina Notice Issued Date-Time: 01/01/2019 13:20 Notice Type: Medicare Outpatient Observation Notice Notice Delivered To: Patient Relationship to Patient: Self General Car Yard Supervisor Name: mar Edward Delivery Method: HAND - Hand Delivered Ella Days: Prior Verbal Notification: Recipient Understood Notice: Yes Recipient Signature: Yes Med Rec Note Co-signed by Attending: Coverage Notice Comment: [place]ON delivered to and signed by patient @1320. Patient Name: MAR EDWARD Page [phone] at 0836 All edits/amendments must be made on the electronic document DICTATION DATE: 01/03/19 0836 LUMBER SALES SUPERVISOR: NASH 01/03/19 0836 RPT#: [id number] DC DATE:01/02/19 STATUS: DIS IN [facility] [address] [place] [address] END OF REPORT
--- NOTE | 2019-01-09 17:02 | HP ---
PATIENT: MAR EDWARD MEDICAL RECORD: [id number] ACCOUNT: [id number] LOCATION:[address] : 57 ADMISSION DATE: 01/01/19 PCP: JOHANN BOO MD HISTORY AND PHYSICAL EXAMINATION DATE OF SERVICE: 01/02/2019 CARDIOLOGY ADMIT NOTE ADMITTING DIAGNOSES: 1. Unstable angina class IV. 2. Coronary artery disease. 3. Previous multivessel percutaneous transluminal coronary angioplasty stent. 4. Hypertension. 5. Hyperlipidemia. 6. Noninsulin-dependent diabetes. HISTORY OF PRESENT ILLNESS: Mr. Edward has past history of multivessel PTCA stent, not any stents within the past year, has been having increasing episodes of chest pain for approximately 1 month. He became quite severe with class IV rest pain. He continues to have episodes of pain this morning. It is just like that of his previous angina, dull, aching, heavy sensation across the anterior chest, radiating to his back, associated with nausea, vomiting and shortness of breath. His troponin is negative. His EKG is with no acute ST-T abnormalities. PHYSICAL EXAMINATION: CONSTITUTIONAL/GENERAL APPEARANCE: Well nourished, well developed, appears stated age. EYES: Lids and conjunctivae noninjected. No discharge. No pallor. ENT: Lips within normal limit. No cyanosis. No pallor. NECK: Carotid arteries, bilateral normal upstroke. No bruits. No thrills. No jugular venous pressure or distention. CERVICAL LYMPH NODES: Nontender. Nonenlarged. THYROID: Not enlarged. No nodules. CARDIOVASCULAR: Precordial exam, nondisplaced. No heaves or pericardial thrills. Rate and rhythm, regular. Heart sounds, normal S1, normal S2. No S3, no gallop, no rub. Systolic murmur, not heard. Diastolic murmur, not heard. RESPIRATORY: Respiratory effort, unlabored. Normal curvature. No thoracic deformity. No chest wall tenderness. Percussion, resonant. Auscultation, clear. No wheezes, no rales, no rhonchi. ABDOMEN: Soft, nondistended, nontender. No abdominal pain, no vomiting and normal appetite. MUSCULOSKELETAL: No joint tenderness, normal gait, normal tone. SKIN: Warm and dry. OVERALL IMPRESSION: Unstable angina class IV symptomatology in a patient with hypertension, hyperlipidemia, diabetes, multiple previous cardiac stenting. We will proceed with coronary angiography. No doubt as most likely he has recurrent hemodynamically significant coronary artery disease. TRANSINT:[id number] Voice Confirmation ID: [id number] DOCUMENT ID: [id number] HISTORY AND PHYSICAL [id number] MAR EDWARD, SUDHA GREENFIELD at 1702 CC: [id number] DICTATION DATE: 01/02/19921 SENIOR SVP: 01/02/19935 DIS IN 01/02/19 [place] [address] [place] [address]
--- NOTE | 2019-01-09 17:02 | EC ---
PATIENT:MAR SAVAGE DATE OF SERVICE: 01/01/19 SEX: M MEDICAL RECORD: [id number] DATE OF : 57 LOCATION:D.M2 D.211 AGE OF PATIENT: 63 ADMISSION DATE: 01/01/19 REFERRING PHYSICIAN: INTERPRETING PHYSICIAN: SUDHA CANDELARIO MD ECHOCARDIOGRAM REPORT ECHO CHARGES 4 ECHO COMPLETE Date: 01/02/19 CLINICAL DIAGNOSIS: UNSTABLE ANGINA/SOB ECHOCARDIOGRAPHIC MEASUREMENTS (adult normal given) AC root (d.<3.7cm) 3.2 cm LV Septum d (<1.2 cm> 1.4 cm Valve Excursion 1.9 cm LV Septum (systole) 2.0 cm Left Atria (s.<4.0cm> 3.7 cm LVPW d(<1.2cm) 1.5 cm RV (d.<2.3cm) 2.3 cm LVPW (sytole) 2.0 cm LV diastole(<5.6CM) 5.3 cm MV E-F(>70mm/sec) cm LV systole 3.5 cm LVOT Diameter 2.0 cm MV exc.(>10mm) cm Est.ejection fraction (50-75%) % DOPPLER: LVIT cm/sec A 50.0 cm/sec E 60.0 cm/sec LA cm/sec RVSP 28.0 mmHg LVOT 82.0 cm/sec AOP1/2T m/s Asc. Ao 140 cm/sec RVOT 54.0 cm/sec RA cm/sec PA 88.0 cm/sec AV Gradient Peak 7.8 mmHg AV Mean 4.9 mmHg AV Area 1.5 cm MV Gradient Peak 3.2 mmHg MV Mean 1.1 mmHg MV Area cm COMMENTS: Manager Administration: Morgan LINDEROE Sanitarian: 1 Dr. Candelario TAPE# PACS Pericardial Effusion N DATE OF SERVICE: 01/02/2019 ECHOCARDIOGRAM FINDINGS: 1. Left ventricular chamber size is within normal limits. Left ventricular systolic function is normal. Overall ejection fraction estimated at 50% to 55%. 2. Left atrium, right atrium, and right ventricle chamber sizes are within normal limits. 3. Valvular structures have normal structure and motion. ECHOCARDIOGRAM REPORT [id number] MAR SAVAGE 4. Doppler interrogation reveals trace tricuspid regurgitation, no other valvular insufficiency or stenosis. Pulmonary systolic pressure is estimated 28 mmHg. 5. No evidence of pericardial effusion or left ventricular thrombus. TRANSINT:[id number] Voice Confirmation ID: [id number] DOCUMENT ID: [id number] SUDHA CANDELARIO MD at 1702 CC: [id number] DICTATION DATE: 01/02/19 1651 REVENUE ENFORCEMENT COLLECTION AGENT: 01/02/19 1753 DIS IN 01/02/19 [place] [address] [place] [id number]
--- NOTE | 2019-01-09 17:02 | DS ---
PATIENT:MAR EDWARD :57 MEDICAL RECORD: [id number] DISCHARGE SUMMARY ADMISSION DATE: 01/01/19 DISCHARGE DATE: 01/02/19 DIAGNOSES: 1. Unstable angina. 2. Coronary artery disease. 3. Percutaneous transluminal coronary angioplasty stent and left anterior descending this admission. HOSPITAL COURSE: Mr. Edward presents with unstable anginal symptomatology, found to have significant disease of the LAD, underwent successful PTCA stent of the LAD, was discharged home with addition of aspirin and Plavix to his medical regimen. We will follow up with [facility] in 1 month. TRANSINT:[id number] Voice Confirmation ID: [id number] DOCUMENT ID: [id number] SUDHA RAMOS MD at 1702 CC: [id number] DICTATION DATE: 01/02/19 115 WORK[employer] COMPENSATION CLAIMS ADJUSTER: 01/02/192052 DIS IN 01/02/19 [facility] [address] [place] [address]
--- NOTE | 2019-01-09 17:02 | OP ---
PATIENT NAME: MAR SAVAGE MEDICAL RECORD: [id number] :57 LOCATION:D.M2 D.2117 ADMISSION DATE:01/01/19 SURGEON: SUDHA RAMOS MD DATE OF OPERATION: 01/02/2019 DATE OF SERVICE: 01/02/2019 PROCEDURES: 1. PTCA stent LAD. 2. IFR. 3. Left heart catheterization. 4. Selective coronary angiography. 5. Left ventriculogram. INDICATION: Unstable angina and coronary artery disease. PROCEDURE IN DETAIL: After informed consent was obtained and after a detailed description of the risks, benefits as well as alternative therapies, the patient elected to proceed with angiogram and angioplasty. The right radial area was prepped and draped in normal sterile fashion. Right radial artery was cannulated via modified Seldinger technique with placement of 6-[place] sheath. All catheters exchanged through this sheath. FINDINGS: Left ventriculogram was performed in standard 30-degree [place] view, reveals good cardiac wall motion, ejection fraction estimated at 60%. SELECTIVE CORONARY ANGIOGRAPHY: 1. Left main is with no significant angiographic disease. 2. Left anterior descending has previously placed stent. This is widely patent; however, there is a 70% stenosis distal to this and IFR was abnormal. 3. Left circumflex has mild irregularities, but no flow-limiting stenosis. 4. Right coronary has mild irregularities, but no flow-limiting stenosis. PTCA STENT OF THE LAD: The stent used 2.5 x 15 mm [place]. Result was 0% residual stenosis. OVERALL IMPRESSION: Successful percutaneous transluminal coronary angioplasty stent of the left anterior descending going from 70+ percent initial stenosis to 0% residual. TRANSINT:[id number] Voice Confirmation ID: [id number] DOCUMENT ID: [id number] SUDHA RAMOS MD at 1702 CC: [id number] DICTATION DATE: 01/02/19 1200 SUPERVISOR PRINT LINE: 01/02/19 1213 DIS IN 01/02/19 [place] [id number] [place] [id number]
== END 2019-01-02 16:26 | disposition home or self-care (01) ==
LOC: D.ER 11:32 → D.M2 13:05 → OBSVTIME 13:05 → D.M2 01-02 16:26
PROVIDERS: Family Medicine; ADMIT Internal Medicine Interventional Cardiology; ATTEND Internal Medicine Interventional Cardiology
DX: I25.110 Atherosclerotic heart disease of native coronary artery with unstable angina pectoris (principal); I10 Essential (primary) hypertension; E78.5 Hyperlipidemia, unspecified; E11.9 Type 2 diabetes mellitus without complications
CPT/HCPCS: 93458; 93571; C9600

== ENCOUNTER → 2019-04-20 10:04 | Outpatient (CLI) | payer MEDICARE, MEDICAID ==
[2019-01-02 09:20] VITALS: BMI 25.8
[~2019-04-20 10:04] MED LIST changes: +AMITRIPTYLINE H50 MG PO; +HYDROCODON-ACE1 EAC7 PO; +OMEPRAZOLE20 M1 PO; +ZANAFLEX4 MG PO
== END | disposition home or self-care (01) ==
LOC: D.RAD 10:04
PROVIDERS: ATTEND Family Medicine
DX: R52 Pain, unspecified (principal)

== ENCOUNTER 2019-04-27 19:38 | Emergency (ER) | payer MEDICARE, MEDICAID ==
[~2019-04-27] VITALS: Ht 177.8 cm; Wt 81.8 kg
[2019-04-27 20:39] VITALS: Ht 177.8 cm; Wt 81.8 kg
[2019-04-27] MEDS ORDERED: AMOXICILLIN500 M1 PO (23:22)
[2019-04-27] MEDS ORDERED: MUCINEX DM ER1 EAC1 PO (23:22)
[2019-04-28 00:08] VITALS: BP 159/96
== END 2019-04-28 00:10 | disposition home or self-care (01) ==
LOC: D.ER 19:38
DX: J02.9 Acute pharyngitis, unspecified (principal); I10 Essential (primary) hypertension; I25.2 Old myocardial infarction; K21.9 Gastro-esophageal reflux disease without esophagitis; E11.40 Type 2 diabetes mellitus with diabetic neuropathy, unspecified; Z79.84 Long term (current) use of oral hypoglycemic drugs

== ENCOUNTER → 2019-06-09 14:48 | Outpatient (CLI) | payer MEDICARE, MEDICAID ==
[2019-04-27 20:39] VITALS: BMI 25.8
[~2019-06-09 14:48] MED LIST changes: +AMOXICILLIN500 M1 PO; +MUCINEX DM ER1 EAC1 PO
== END | disposition home or self-care (01) ==
LOC: D.RAD 14:48
PROVIDERS: ATTEND Family Medicine
DX: M54.6 Pain in thoracic spine (principal)

== ENCOUNTER → 2019-07-20 11:59 | Outpatient (CLI) | payer MEDICARE, MEDICAID ==
[2019-04-27 20:39] VITALS: BMI 25.8
== END | disposition home or self-care (01) ==
LOC: D.US 07-17 09:30
PROVIDERS: ATTEND Family Medicine
DX: R10.11 Right upper quadrant pain (principal)